=== PATIENT | female | born 1935 | race Caucasian/White ===

== ENCOUNTER 2016-07-19 02:26 | Emergency (ER) | payer MEDICARE ==
[~2016-07-19 02:26] MED LIST: ASPI81TA85 PO; BUSP10TA PO; CIPR-303 PO; FAMO20TA PO; FLAG500T PO; LEVO50TA5 PO; LISI10TA2 PO; NASA0.057; OCEA0.654; PEPCCHW3 PO; SING10TA32 PO; TYLE325T5 PO; VITA100037 PO; ZOCO40TA PO; ZYRT1TAB PO
[2016-07-19] MEDS ORDERED: FAMOTIDINE INJ 20MG/2ML VIAL (S0028) As Ordered ONE (03:32)
[2016-07-19] MEDS ORDERED: diphenhydrAMINE INJ 50MG/ML VIAL (J1200) As Ordered ONE (03:32)
[2016-07-19] MEDS ORDERED: methylPREDNISolone INJ 125 MG/2 ML VIAL (J2930) As Ordered ONE (03:32)
[2016-07-19 03:41] LABS: BASO % 0.2 % (0.0-1.0); EOS # 0.4 K/mm3 (0.0-0.50); EOS % 3.8 % (0.0-3.0); LARGE UNSTAINED CELL # 0.2 K/mm3 (0.0-0.4); LARGE UNSTAINED CELL % 2.1 % (0.0-4.0); LYMPH # 2.5 K/mm3 (1.5-4.5); LYMPH % 25.5 % (24.0-44.0); MEAN CORPUSCULAR HEMOGLOBIN 30.6 pg (27.0-33.0); MEAN CORPUSCULAR HGB CONC 33.2 g/dl (32.0-36.5); MEAN CORPUSCULAR VOLUME 92.1 fl (80.0-96.0); MONO # 0.7 K/mm3 (0.0-0.8); MONO % 7.2 % (0.0-5.0); NEUTROPHILS % 61.3 % (36.0-66.0); PLATELET COUNT, AUTOMATED 290 k/mm3 (150-450); RED CELL DISTRIBUTION WIDTH 13.7 % (11.5-14.5); WHITE BLOOD COUNT 9.8 K/mm3 (4.0-10.0)
[2016-07-19 04:00] LABS: CALCIUM LEVEL 9.2 MG/DL (8.8-10.2); CREATININE FOR GFR 1.16 MG/DL (0.55-1.02); GLOMERULAR FILTRATION RATE 47.9 (>32); POTASSIUM SERUM 3.8 MEQ/L (3.5-5.1)
--- NOTE | 2016-07-19 06:18 | EDDOCDS ---
Nurse's Notes [facility] Name: Ness Signor Age: 80 yrs Sex: Female : 1935 Arrival Date: 07/19/2016 Time: 02:26 Bed 9 Private MD: Diagnosis: Other allergy status, other than to drugs and biological substances-unknown Presentation: 07/19 02:59 Presenting complaint: Patient states: Lower lip swelling. Started at 2300 and has kmg1 progressively got worse. Denies any new foods or fluids. Has not used anything new. Onset: The symptoms/episode began/occurred suddenly. The patient has a history of a previous allergic reaction. The previous reaction involved swelling. upper and lower lips accompanied by hives. Anaphylaxis evaluation, the patient reports or I have noted the following symptoms which indicate a significant risk of anaphylaxis: angioedema. Suicide/Homicide risk assessment- the patient denies having any suicidal and/or homicidal ideations and does not present with any other emotional, behavioral or mental health complaints. Status: Patient is not a marketing services coordinator or dependent. Transition of care: patient was not received from another setting of care. 02:59 Acuity: VINCENT Level 3 kmg1 02:59 Method Of Arrival: Walkin/Carried/Asstd kmg1 06:16 Adult Sepsis Screening: The patient does not have new or worsening altered mentation. af2 Patient's respiratory rate is less than 22. Systolic blood pressure is greater than 100. Patient has a qSOFA score of 0- Negative Sepsis Screen. Triage Assessment: 03:06 General: Appears in no apparent distress, comfortable, Behavior is appropriate for age, kmg1 cooperative, pleasant. Pain: Denies pain. Respiratory: Airway is patent Respiratory effort is even, unlabored, Respiratory pattern is regular, symmetrical, Reports no respiratory complaints. GI:. Derm: Rash noted that is red, raised, urticaria, on left mid back Swollen area noted on lower lip. Historical: - Allergies: Amoxicillin; Bees; Clindamycin (Hives); Erythromycin; SULFA (SULFONAMIDES); - Home Meds: 1. aspirin 81 mg Oral TbEC 1 tab once daily (Last dose: 07/18/2016) 2. buspirone 10 mg Oral tab 1 tab 2 times per day (Last dose: 07/18/2016 22:30) 3. fiber con Unknown 1 cap (Last dose: 07/18/2016 22:30) 4. lisinopril-hydrochlorothiazide 10-12.5 mg oral tab 1 tab once daily (Last dose: 07/18/2016) 5. simvastatin 40 mg Oral tab 1 tab once daily (Last dose: 07/18/2016 17:00) 6. Pepcid 20 mg Oral tab 1 tab once daily (Last dose: 07/18/2016) 7. Synthroid 50 mcg Oral tab 1 tab once daily (Last dose: 07/18/2016) 8. Singulair 10 mg Oral tab 1 tab once daily (Last dose: 07/18/2016) 9. Zyrtec 10 mg Oral tab 1 tab nightly (Last dose: 07/18/2016 22:00) 10. magnesnium daily (Last dose: 07/18/2016) 11. multivitamin Oral tab 1 tab daily (Last dose: 07/18/2016) 12. Vitamin D3 oral 1 tab daily daily (Last dose: 07/18/2016) 13. saline nasal spray as needed - PMHx: Diverticulitis; Hypertension; Hypercholesterolemia; Hypothyroidism; Seasonal Allergies; GERD; Anxiety; - PSHx: D & C; Hysterectomy; - Social history: Smoking status: Patient states was never smoker of tobacco. No barriers to communication noted, The patient speaks fluent Nepalese, Speaks appropriately for age. - Family history: Not pertinent. - : The pt / caregiver states he / she is not on anticoagulants. Home medication list is obtained from the patient, [employer] import data. - Exposure Risk Screening:: None identified. Screenin:05 Screening information is obtained from the patient. Fall risk: No risks identified. af2 Assistance ADL's: requires no assistance with activities of daily living. Abuse/DV Screen: The patient / caregiver reports he/she is: not in a situation that causes fear, pain or injury. Nutritional screening: No deficits noted. Advance Directives: Currently, there is no health care proxy. home support is adequate. Assessment: 03:30 General: Appears in no apparent distress, comfortable, Behavior is appropriate for age, af2 cooperative. Neurological: Level of Consciousness is awake, alert. EENT: edema to upper and lower lips.. Respiratory: Airway is patent Respiratory effort is even, unlabored, Breath sounds are clear bilaterally. 04:30 General: Appears in no apparent distress, comfortable, Behavior is appropriate for age, af2 cooperative, edema to lips decreased.. 06:06 General: pt tolerated po fluid challenge.. Neurological: Level of Consciousness is af2 awake, alert. Respiratory: Airway is patent Respiratory effort is even, unlabored. Derm: Skin is normal. Vital Signs: 03:06 BP 135 / 69; Pulse 76; Resp 18; Temp 97.3(O); Pulse Ox 95% on R/A; Weight 79.38 kg (R); kmg1 Height 5 ft. 3 in. (160.02 cm) (R); Pain 0/10; 03:29 BP 137 / 63 (auto/); af2 03:33 Pulse 76 MON; Pulse Ox 98% ; af2 03:42 BP 141 / 69 (auto/); af2 03:42 Pulse 86 MON; Pulse Ox 98% ; af2 03:59 BP 150 / 65 (auto/); af2 03:59 Pulse 72 MON; Pulse Ox 99% ; af2 04:29 BP 149 / 69 (auto/); af2 04:30 Pulse 68 MON; Pulse Ox 96% ; af2 04:51 BP 135 / 65 (auto/); af2 04:51 Pulse 82 MON; Pulse Ox 95% ; af2 04:59 BP 144 / 62 (auto/); af2 05:00 Pulse 80 MON; Pulse Ox 96% ; af2 05:29 BP 138 / 63 (auto/); af2 05:30 Pulse 74 MON; Pulse Ox 96% ; af2 05:59 BP 139 / 71 (auto/); af2 06:00 Pulse 68 MON; Resp 18 S; Temp 97.0(TE); Pulse Ox 96% on R/A; af2 03:06 Body Mass Index 31.00 (79.38 kg, 160.02 cm) [facility] Vitals: 03:06 Log In Time: July 19, 2016 at 02:27. [facility] ED Course: 02:27 Patient visited by Zeny Presley Reg. hs2 02:27 Patient moved to Waiting hs2 03:02 Triage Initiated [facility] 03:12 Pastora Song,RN is Primary Nurse. kmg1 03:12 Patient moved to 9 [facility] 03:19 Rian Lackey DO is Attending Physician. [facility] 03:19 Patient visited by Rian Lackey DO. mm11 03:27 Patient visited by Rian Lackey DO. mm11 04:05 Patient visited by Pastora Song RN. af2 04:50 Patient visited by Rian Lackey DO. mm11 05:30 Patient visited by Rian Lackey DO. mm11 05:45 Douglas Thomas is Referral Physician. mm11 06:03 [facility] Payment Agreement was scanned into [employer] and attached to record. hs2 06:05 The patient / caregiver is instructed regarding the plan of care and ED course. Patient af2 has correct armband on for positive identification. Placed in gown. 06:05 Inserted saline lock: 20 gauge in left antecubital area and blood collected. The af2 patient tolerated the procedure well. No procedures done that require assistance. 06:07 Patient visited by Pastora Song RN. af2 06:16 Discontinued IV lock intact, bleeding controlled, pressure dressing applied, No af2 redness/swelling at site. Administered Medications: 03:45 Drug: Famotidine 10 mg [famotidine 10 mg/mL intravenous solution] Route: IVPB; Infused kas2 Over: 30 mins; Site: left antecubital; 03:45 Drug: Solu-MEDROL 125 mg [Solu-Medrol 500 mg intravenous solution (125 mg)] Route: IVP; kas2 Site: left antecubital; 03:45 Drug: diphenhydrAMINE 25 mg [diphenhydramine 50 mg/mL injection solution (0.5 mL)] kas2 Route: IVP; Site: left antecubital; Order Results: Lab Order: CBC with Diff; SPEC'M 07/19/16 03:33 Test: WHITE BLOOD COUNT; Value: 9.8; Range: 4.0-10.0; Units: K/mm3; Status: F Test: RED BLOOD COUNT; Value: 4.12; Range: 4.00-5.40; Units: M/mm3; Status: F Test: HEMOGLOBIN; Value: 12.6; Range: 12.0-16.0; Units: g/dl; Status: F Test: HEMATOCRIT; Value: 37.9; Range: 36.0-47.0; Units: %; Status: F Test: MEAN CORPUSCULAR VOLUME; Value: 92.1; Range: 80.0-96.0; Units: fl; Status: F Test: MEAN CORPUSCULAR HEMOGLOBIN; Value: 30.6; Range: 27.0-33.0; Units: pg; Status: F Test: MEAN CORPUSCULAR HGB CONC; Value: 33.2; Range: 32.0-36.5; Units: g/dl; Status: F Test: RED CELL DISTRIBUTION WIDTH; Value: 13.7; Range: 11.5-14.5; Units: %; Status: F Test: PLATELET COUNT, AUTOMATED; Value: 290; Range: 150-450; Units: k/mm3; Status: F Test: NEUTROPHILS %; Value: 61.3; Range: 36.0-66.0; Units: %; Status: F Test: LYMPH %; Value: 25.5; Range: 24.0-44.0; Units: %; Status: F Test: MONO %; Value: 7.2; Range: 0.0-5.0; Abnormal: Above high normal; Units: %; Status: F Test: EOS %; Value: 3.8; Range: 0.0-3.0; Abnormal: Above high normal; Units: %; Status: F Test: BASO %; Value: 0.2; Range: 0.0-1.0; Units: %; Status: F Test: LARGE UNSTAINED CELL %; Value: 2.1; Range: 0.0-4.0; Units: %; Status: F Test: NEUTROPHILS #; Value: 6.0; Range: 1.8-7.7; Units: K/mm3; Status: F Test: LYMPH #; Value: 2.5; Range: 1.5-4.5; Units: K/mm3; Status: F Test: MONO #; Value: 0.7; Range: 0.0-0.8; Units: K/mm3; Status: F Test: EOS #; Value: 0.4; Range: 0.0-0.50; Units: K/mm3; Status: F Test: BASO #; Value: 0.0; Range: 0.0-0.2; Units: K/mm3; Status: F Test: LARGE UNSTAINED CELL #; Value: 0.2; Range: 0.0-0.4; Units: K/mm3; Status: F Lab Order: ROSAURA SARMIENTO 07/19/16 03:33 Test: GLUCOSE, FASTING; Value: 91; Range: 83-110; Units: MG/DL; Status: F Test: BLOOD UREA NITROGEN; Value: 21; Range: 7-18; Abnormal: Above high normal; Units: MG/DL; Status: F Test: CREATININE FOR GFR; Value: 1.16; Range: 0.55-1.02; Abnormal: Above high normal; Units: MG/DL; Status: F Test: GLOMERULAR FILTRATION RATE; Value: 47.9; Range: >32; Status: F Test: SODIUM LEVEL; Value: 147; Range: 136-145; Abnormal: Above high normal; Units: MEQ/L; Status: F Test: POTASSIUM SERUM; Value: 3.8; Range: 3.5-5.1; Units: MEQ/L; Status: F Test: CHLORIDE LEVEL; Value: 109; Range: 98-107; Abnormal: Above high normal; Units: MEQ/L; Status: F Test: CARBON DIOXIDE LEVEL; Value: 30; Range: 21-32; Units: MEQ/L; Status: F Test: ANION GAP; Value: 8; Range: 8-16; Units: MEQ/L; Status: F Test: CALCIUM LEVEL; Value: 9.2; Range: 8.8-10.2; Units: MG/DL; Status: F Test Note: ; Units are mL/min/1.73 m2 Chronic Kidney Disease Staging per NKF: Stage I & II GFR >=60 Normal to Mildly Decreased Stage III GFR 30-59 Moderately Decreased Stage IV GFR 15-29 Severely Decreased Stage V GFR <15 Very Little GFR Left ESRD GFR <15 on COOK BARBECUE Outcome: 05:45 Discharge ordered by Provider. mm11 06:16 Discharge Assessment: Patient awake, alert and oriented x 3. No cognitive and/or af2 functional deficits noted. Patient verbalized understanding of disposition instructions. patient administered narcotics - no. The following High Risk Discharge criteria are identified: None. Discharged to home ambulatory. Condition: stable. Discharge instructions given to patient, Instructed on discharge instructions, follow up and referral plans. medication usage, Demonstrated understanding of instructions, medications, Pt was receptive of discharge instructions/ teaching. No special radiology studies were completed. Property :Personal belongings accompany Pt. 06:17 Patient left the ED. af2 Signatures: Francesca Westbrook RN RN kmg1 Rian Lackey, DO mm11 Pastora Song RN RN af2 Zeny Presley, Reg Reg hs2 Denise Lindsay RN RN kas2 Corrections: (The following items were deleted from the chart) 03:11 03:06 Derm: Swollen area noted on lower lip g1 kmg1 06:08 06:00 Pulse 68bpm; MonitorResp 18bpm; Spontaneous; Pulse Ox 96% RA; af2 af2 MTDD
--- NOTE | 2016-07-19 06:18 | EDDOCDS ---
[facility] Name: Ness Signor Age: 80 yrs Sex: Female : 1935 Arrival Date: 07/19/2016 Time: 02:26 Bed 9 Private MD: Disposition: 07/19/16 05:45 Discharged to Home/Self Care. Impression: Other allergy status, other than to drugs and biological substances - unknown. - Condition is Stable. - Discharge Instructions: Allergies, Angioedema, Angioedema, [id number]. - Prescriptions for Prednisone 20 mg Oral Tablet - take 2 tablet by ORAL route once daily for 5 days; 10 tablet. - Medication Reconciliation, Local Pharmacy Hours form. - Follow up: Douglas Thomas; When: Call to arrange an appointment; Reason: Further diagnostic work-up, To establish care. - Problem is an acute exacerbation. - Symptoms have improved. Historical: - Allergies: Amoxicillin; Bees; Clindamycin (Hives); Erythromycin; SULFA (SULFONAMIDES); - Home Meds: 1. aspirin 81 mg Oral TbEC 1 tab once daily (Last dose: 07/18/2016) 2. buspirone 10 mg Oral tab 1 tab 2 times per day (Last dose: 07/18/2016 22:30) 3. fiber con Unknown 1 cap (Last dose: 07/18/2016 22:30) 4. lisinopril-hydrochlorothiazide 10-12.5 mg oral tab 1 tab once daily (Last dose: 07/18/2016) 5. simvastatin 40 mg Oral tab 1 tab once daily (Last dose: 07/18/2016 17:00) 6. Pepcid 20 mg Oral tab 1 tab once daily (Last dose: 07/18/2016) 7. Synthroid 50 mcg Oral tab 1 tab once daily (Last dose: 07/18/2016) 8. Singulair 10 mg Oral tab 1 tab once daily (Last dose: 07/18/2016) 9. Zyrtec 10 mg Oral tab 1 tab nightly (Last dose: 07/18/2016 22:00) 10. magnesnium daily (Last dose: 07/18/2016) 11. multivitamin Oral tab 1 tab daily (Last dose: 07/18/2016) 12. Vitamin D3 oral 1 tab daily daily (Last dose: 07/18/2016) 13. saline nasal spray as needed - PMHx: Diverticulitis; Hypertension; Hypercholesterolemia; Hypothyroidism; Seasonal Allergies; GERD; Anxiety; - PSHx: D & C; Hysterectomy; - Social history: Smoking status: Patient states was never smoker of tobacco. No barriers to communication noted, The patient speaks fluent Malay, Speaks appropriately for age. - Family history: Not pertinent. - : The pt / caregiver states he / she is not on anticoagulants. Home medication list is obtained from the patient, [employer] import data. - Exposure Risk Screening:: None identified. Vital Signs: 07/19 03:06 BP 135 / 69; Pulse 76; Resp 18; Temp 97.3(O); Pulse Ox 95% on R/A; Weight 79.38 kg / kmg1 175 lbs (R); Height 5 ft. 3 in. (160.02 cm) (R); Pain 0/10; 03:29 BP 137 / 63 (auto/); af2 03:33 Pulse 76 MON; Pulse Ox 98% ; af2 03:42 BP 141 / 69 (auto/); af2 03:42 Pulse 86 MON; Pulse Ox 98% ; af2 03:59 BP 150 / 65 (auto/); af2 03:59 Pulse 72 MON; Pulse Ox 99% ; af2 04:29 BP 149 / 69 (auto/); af2 04:30 Pulse 68 MON; Pulse Ox 96% ; af2 04:51 BP 135 / 65 (auto/); af2 04:51 Pulse 82 MON; Pulse Ox 95% ; af2 04:59 BP 144 / 62 (auto/); af2 05:00 Pulse 80 MON; Pulse Ox 96% ; af2 05:29 BP 138 / 63 (auto/); af2 05:30 Pulse 74 MON; Pulse Ox 96% ; af2 05:59 BP 139 / 71 (auto/); af2 06:00 Pulse 68 MON; Resp 18 S; Temp 97.0(TE); Pulse Ox 96% on R/A; af2 03:06 Body Mass Index 31.00 (79.38 kg, 160.02 cm) kmg1 MDM: 03:28 Famotidine 10 mg IVPB once over 30 mins; dilute in 50mL of NS ordered. mm11 03:28 Solu-MEDROL 125 mg IVP once ordered. mm11 03:28 diphenhydrAMINE 25 mg IVP once ordered. mm11 03:29 CBC with Diff Ordered. EDMS 03:29 BMP Ordered. EDMS 03:30 Solu-MEDROL 125 mg IVP once ordered. kas2 03:30 diphenhydrAMINE 25 mg IVP once ordered. kas2 04:06 CBC with Diff Reviewed. mm11 04:06 BMP Reviewed. mm11 05:58 Financial registration complete. hs2 06:03 PENDING SALE TO [facility] Payment Agreement was scanned into [employer] and attached to record. hs2 Administered Medications: 03:45 Drug: Famotidine 10 mg [famotidine 10 mg/mL intravenous solution] Route: IVPB; Infused kas2 Over: 30 mins; Site: left antecubital; 03:45 Drug: Solu-MEDROL 125 mg [Solu-Medrol 500 mg intravenous solution (125 mg)] Route: IVP; kas2 Site: left antecubital; 03:45 Drug: diphenhydrAMINE 25 mg [diphenhydramine 50 mg/mL injection solution (0.5 mL)] kas2 Route: IVP; Site: left antecubital; Signatures: Dispatcher [employer] EDMS Francesca Westbrook, ABDIRAHMAN RN kmg1 Rian Lackey, DO mm11 Pastora Song RN RN af2 Zeny Presley, Reg Reg hs2 Denise Lindsay RN RN kas2 The chart was reviewed and I authenticate all verbal orders and agree with the evaluation and treatment provided.Attachments: 06:03 PENDING SALE TO [facility] Payment Agreement hs2 MTDD
--- NOTE | 2016-07-21 07:17 | EDDOCDS ---
Physician Documentation [facility] Name: Ness Signor Age: 80 yrs Sex: Female : 1935 Arrival Date: 07/19/2016 Time: 02:26 Bed 9 Private MD: Disposition: 07/19/16 05:45 Discharged to Home/Self Care. Impression: Other allergy status, other than to drugs and biological substances - unknown. - Condition is Stable. - Discharge Instructions: Allergies, Angioedema, Angioedema, [id number]. - Prescriptions for Prednisone 20 mg Oral Tablet - take 2 tablet by ORAL route once daily for 5 days; 10 tablet. - Medication Reconciliation, Local Pharmacy Hours form. - Follow up: Douglas Thomas; When: Call to arrange an appointment; Reason: Further diagnostic work-up, To establish care. - Problem is an acute exacerbation. - Symptoms have improved. Historical: - Allergies: Amoxicillin; Bees; Clindamycin (Hives); Erythromycin; SULFA (SULFONAMIDES); - Home Meds: 1. aspirin 81 mg Oral TbEC 1 tab once daily (Last dose: 07/18/2016) 2. buspirone 10 mg Oral tab 1 tab 2 times per day (Last dose: 07/18/2016 22:30) 3. fiber con Unknown 1 cap (Last dose: 07/18/2016 22:30) 4. lisinopril-hydrochlorothiazide 10-12.5 mg oral tab 1 tab once daily (Last dose: 07/18/2016) 5. simvastatin 40 mg Oral tab 1 tab once daily (Last dose: 07/18/2016 17:00) 6. Pepcid 20 mg Oral tab 1 tab once daily (Last dose: 07/18/2016) 7. Synthroid 50 mcg Oral tab 1 tab once daily (Last dose: 07/18/2016) 8. Singulair 10 mg Oral tab 1 tab once daily (Last dose: 07/18/2016) 9. Zyrtec 10 mg Oral tab 1 tab nightly (Last dose: 07/18/2016 22:00) 10. magnesnium daily (Last dose: 07/18/2016) 11. multivitamin Oral tab 1 tab daily (Last dose: 07/18/2016) 12. Vitamin D3 oral 1 tab daily daily (Last dose: 07/18/2016) 13. saline nasal spray as needed - PMHx: Diverticulitis; Hypertension; Hypercholesterolemia; Hypothyroidism; Seasonal Allergies; GERD; Anxiety; - PSHx: D & C; Hysterectomy; - Social history: Smoking status: Patient states was never smoker of tobacco. No barriers to communication noted, The patient speaks fluent Mongolian, Speaks appropriately for age. - Family history: Not pertinent. - : The pt / caregiver states he / she is not on anticoagulants. Home medication list is obtained from the patient, [email or web address] import data. - Exposure Risk Screening:: None identified. Vital Signs: 07/19 03:06 BP 135 / 69; Pulse 76; Resp 18; Temp 97.3(O); Pulse Ox 95% on R/A; Weight 79.38 kg / kmg1 175 lbs (R); Height 5 ft. 3 in. (160.02 cm) (R); Pain 0/10; 03:29 BP 137 / 63 (auto/); af2 03:33 Pulse 76 MON; Pulse Ox 98% ; af2 03:42 BP 141 / 69 (auto/); af2 03:42 Pulse 86 MON; Pulse Ox 98% ; af2 03:59 BP 150 / 65 (auto/); af2 03:59 Pulse 72 MON; Pulse Ox 99% ; af2 04:29 BP 149 / 69 (auto/); af2 04:30 Pulse 68 MON; Pulse Ox 96% ; af2 04:51 BP 135 / 65 (auto/); af2 04:51 Pulse 82 MON; Pulse Ox 95% ; af2 04:59 BP 144 / 62 (auto/); af2 05:00 Pulse 80 MON; Pulse Ox 96% ; af2 05:29 BP 138 / 63 (auto/); af2 05:30 Pulse 74 MON; Pulse Ox 96% ; af2 05:59 BP 139 / 71 (auto/); af2 06:00 Pulse 68 MON; Resp 18 S; Temp 97.0(TE); Pulse Ox 96% on R/A; af2 03:06 Body Mass Index 31.00 (79.38 kg, 160.02 cm) kmg1 MDM: 03:28 Famotidine 10 mg IVPB once over 30 mins; dilute in 50mL of NS ordered. mm11 03:28 Solu-MEDROL 125 mg IVP once ordered. mm11 03:28 diphenhydrAMINE 25 mg IVP once ordered. mm11 03:29 CBC with Diff Ordered. EDMS 03:29 BMP Ordered. EDMS 03:30 Solu-MEDROL 125 mg IVP once ordered. kas2 03:30 diphenhydrAMINE 25 mg IVP once ordered. kas2 04:06 CBC with Diff Reviewed. mm11 04:06 BMP Reviewed. mm11 05:58 Financial registration complete. hs2 06:03 ON LICENSE OF [facility] Payment Agreement was scanned into [employer] and attached to record. hs2 22:01 T-Sheet-- Draft Copy was scanned into [employer] and attached to record. klr Administered Medications: 03:45 Drug: Famotidine 10 mg [famotidine 10 mg/mL intravenous solution] Route: IVPB; Infused kas2 Over: 30 mins; Site: left antecubital; 03:45 Drug: Solu-MEDROL 125 mg [Solu-Medrol 500 mg intravenous solution (125 mg)] Route: IVP; kas2 Site: left antecubital; 03:45 Drug: diphenhydrAMINE 25 mg [diphenhydramine 50 mg/mL injection solution (0.5 mL)] kas2 Route: IVP; Site: left antecubital; Signatures: Dispatcher [employer] EDFrancesca Casillas, ABDIRAHMAN RN kmg1 Rian Lackey, DO mm11 Pastora Song RN RN af2 Zeny Presley, Reg Reg hs2 Denise Lindsay RN RN kas2 Sariah Badillo klr The chart was reviewed and I authenticate all verbal orders and agree with the evaluation and treatment provided.Attachments: 06:03 ON LICENSE OF [facility] Payment Agreement hs2 22:01 T-Sheet-- Draft Copy klr Chart Complete MTDD
--- NOTE | 2016-07-21 07:17 | EDDOCDS ---
Physician Documentation [facility] Name: Ness Signor Age: 80 yrs Sex: Female : 1935 Arrival Date: 07/19/2016 Time: 02:26 Bed 9 Private MD: Disposition: 07/19/16 05:45 Discharged to Home/Self Care. Impression: Other allergy status, other than to drugs and biological substances - unknown. - Condition is Stable. - Discharge Instructions: Allergies, Angioedema, Angioedema, [id number]. - Prescriptions for Prednisone 20 mg Oral Tablet - take 2 tablet by ORAL route once daily for 5 days; 10 tablet. - Medication Reconciliation, Local Pharmacy Hours form. - Follow up: Douglas Thomas; When: Call to arrange an appointment; Reason: Further diagnostic work-up, To establish care. - Problem is an acute exacerbation. - Symptoms have improved. Historical: - Allergies: Amoxicillin; Bees; Clindamycin (Hives); Erythromycin; SULFA (SULFONAMIDES); - Home Meds: 1. aspirin 81 mg Oral TbEC 1 tab once daily (Last dose: 07/18/2016) 2. buspirone 10 mg Oral tab 1 tab 2 times per day (Last dose: 07/18/2016 22:30) 3. fiber con Unknown 1 cap (Last dose: 07/18/2016 22:30) 4. lisinopril-hydrochlorothiazide 10-12.5 mg oral tab 1 tab once daily (Last dose: 07/18/2016) 5. simvastatin 40 mg Oral tab 1 tab once daily (Last dose: 07/18/2016 17:00) 6. Pepcid 20 mg Oral tab 1 tab once daily (Last dose: 07/18/2016) 7. Synthroid 50 mcg Oral tab 1 tab once daily (Last dose: 07/18/2016) 8. Singulair 10 mg Oral tab 1 tab once daily (Last dose: 07/18/2016) 9. Zyrtec 10 mg Oral tab 1 tab nightly (Last dose: 07/18/2016 22:00) 10. magnesnium daily (Last dose: 07/18/2016) 11. multivitamin Oral tab 1 tab daily (Last dose: 07/18/2016) 12. Vitamin D3 oral 1 tab daily daily (Last dose: 07/18/2016) 13. saline nasal spray as needed - PMHx: Diverticulitis; Hypertension; Hypercholesterolemia; Hypothyroidism; Seasonal Allergies; GERD; Anxiety; - PSHx: D & C; Hysterectomy; - Social history: Smoking status: Patient states was never smoker of tobacco. No barriers to communication noted, The patient speaks fluent Malay, Speaks appropriately for age. - Family history: Not pertinent. - : The pt / caregiver states he / she is not on anticoagulants. Home medication list is obtained from the patient, [employer] import data. - Exposure Risk Screening:: None identified. Vital Signs: 07/19 03:06 BP 135 / 69; Pulse 76; Resp 18; Temp 97.3(O); Pulse Ox 95% on R/A; Weight 79.38 kg / kmg1 175 lbs (R); Height 5 ft. 3 in. (160.02 cm) (R); Pain 0/10; 03:29 BP 137 / 63 (auto/); af2 03:33 Pulse 76 MON; Pulse Ox 98% ; af2 03:42 BP 141 / 69 (auto/); af2 03:42 Pulse 86 MON; Pulse Ox 98% ; af2 03:59 BP 150 / 65 (auto/); af2 03:59 Pulse 72 MON; Pulse Ox 99% ; af2 04:29 BP 149 / 69 (auto/); af2 04:30 Pulse 68 MON; Pulse Ox 96% ; af2 04:51 BP 135 / 65 (auto/); af2 04:51 Pulse 82 MON; Pulse Ox 95% ; af2 04:59 BP 144 / 62 (auto/); af2 05:00 Pulse 80 MON; Pulse Ox 96% ; af2 05:29 BP 138 / 63 (auto/); af2 05:30 Pulse 74 MON; Pulse Ox 96% ; af2 05:59 BP 139 / 71 (auto/); af2 06:00 Pulse 68 MON; Resp 18 S; Temp 97.0(TE); Pulse Ox 96% on R/A; af2 03:06 Body Mass Index 31.00 (79.38 kg, 160.02 cm) kmg1 MDM: 03:28 Famotidine 10 mg IVPB once over 30 mins; dilute in 50mL of NS ordered. mm11 03:28 Solu-MEDROL 125 mg IVP once ordered. mm11 03:28 diphenhydrAMINE 25 mg IVP once ordered. mm11 03:29 CBC with Diff Ordered. EDMS 03:29 BMP Ordered. EDMS 03:30 Solu-MEDROL 125 mg IVP once ordered. kas2 03:30 diphenhydrAMINE 25 mg IVP once ordered. kas2 04:06 CBC with Diff Reviewed. mm11 04:06 BMP Reviewed. mm11 05:58 Financial registration complete. hs2 06:03 [facility] Payment Agreement was scanned into [employer] and attached to record. hs2 22:01 T-Sheet-- Draft Copy was scanned into [employer] and attached to record. klr Administered Medications: 03:45 Drug: Famotidine 10 mg [famotidine 10 mg/mL intravenous solution] Route: IVPB; Infused kas2 Over: 30 mins; Site: left antecubital; 03:45 Drug: Solu-MEDROL 125 mg [Solu-Medrol 500 mg intravenous solution (125 mg)] Route: IVP; kas2 Site: left antecubital; 03:45 Drug: diphenhydrAMINE 25 mg [diphenhydramine 50 mg/mL injection solution (0.5 mL)] kas2 Route: IVP; Site: left antecubital; Signatures: Dispatcher [employer] EDFrancesca Casillas, ABDIRAHMAN RN kmg1 Rian Lackey, DO mm11 Pastora Song RN RN af2 Zeny Presley, Reg Reg hs2 Denise Lindsay RN RN kas2 Sariah Badillo klr The chart was reviewed and I authenticate all verbal orders and agree with the evaluation and treatment provided.Attachments: 06:03 [facility] Payment Agreement hs2 22:01 T-Sheet-- Draft Copy klr Chart Complete MTDD
--- NOTE | 2016-07-21 07:18 | EDDOCDS ---
Nurse's Notes [facility] Name: Ness Signor Age: 80 yrs Sex: Female : 1935 Arrival Date: 07/19/2016 Time: 02:26 Bed 9 Private MD: Diagnosis: Other allergy status, other than to drugs and biological substances-unknown Presentation: 07/19 02:59 Presenting complaint: Patient states: Lower lip swelling. Started at 2300 and has kmg1 progressively got worse. Denies any new foods or fluids. Has not used anything new. Onset: The symptoms/episode began/occurred suddenly. The patient has a history of a previous allergic reaction. The previous reaction involved swelling. upper and lower lips accompanied by hives. Anaphylaxis evaluation, the patient reports or I have noted the following symptoms which indicate a significant risk of anaphylaxis: angioedema. Suicide/Homicide risk assessment- the patient denies having any suicidal and/or homicidal ideations and does not present with any other emotional, behavioral or mental health complaints. 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 Transition of care: patient was not received from another setting of care. 02:59 Acuity: VINCENT Level 3 kmg1 02:59 Method Of Arrival: Walkin/Carried/Asstd kmg1 06:16 Adult Sepsis Screening: The patient does not have new or worsening altered mentation. af2 Patient's respiratory rate is less than 22. Systolic blood pressure is greater than 100. Patient has a qSOFA score of 0- Negative Sepsis Screen. Triage Assessment: 03:06 General: Appears in no apparent distress, comfortable, Behavior is appropriate for age, kmg1 cooperative, pleasant. Pain: Denies pain. Respiratory: Airway is patent Respiratory effort is even, unlabored, Respiratory pattern is regular, symmetrical, Reports no respiratory complaints. GI:. Derm: Rash noted that is red, raised, urticaria, on left mid back Swollen area noted on lower lip. Historical: - Allergies: Amoxicillin; Bees; Clindamycin (Hives); Erythromycin; SULFA (SULFONAMIDES); - Home Meds: 1. aspirin 81 mg Oral TbEC 1 tab once daily (Last dose: 07/18/2016) 2. buspirone 10 mg Oral tab 1 tab 2 times per day (Last dose: 07/18/2016 22:30) 3. fiber con Unknown 1 cap (Last dose: 07/18/2016 22:30) 4. lisinopril-hydrochlorothiazide 10-12.5 mg oral tab 1 tab once daily (Last dose: 07/18/2016) 5. simvastatin 40 mg Oral tab 1 tab once daily (Last dose: 07/18/2016 17:00) 6. Pepcid 20 mg Oral tab 1 tab once daily (Last dose: 07/18/2016) 7. Synthroid 50 mcg Oral tab 1 tab once daily (Last dose: 07/18/2016) 8. Singulair 10 mg Oral tab 1 tab once daily (Last dose: 07/18/2016) 9. Zyrtec 10 mg Oral tab 1 tab nightly (Last dose: 07/18/2016 22:00) 10. magnesnium daily (Last dose: 07/18/2016) 11. multivitamin Oral tab 1 tab daily (Last dose: 07/18/2016) 12. Vitamin D3 oral 1 tab daily daily (Last dose: 07/18/2016) 13. saline nasal spray as needed - PMHx: Diverticulitis; Hypertension; Hypercholesterolemia; Hypothyroidism; Seasonal Allergies; GERD; Anxiety; - PSHx: D & C; Hysterectomy; - Social history: Smoking status: Patient states was never smoker of tobacco. No barriers to communication noted, The patient speaks fluent Eritrean, Speaks appropriately for age. - Family history: Not pertinent. - : The pt / caregiver states he / she is not on anticoagulants. Home medication list is obtained from the patient, [employer] import data. - Exposure Risk Screening:: None identified. Screenin:05 Screening information is obtained from the patient. Fall risk: No risks identified. af2 Assistance ADL's: requires no assistance with activities of daily living. Abuse/DV Screen: The patient / caregiver reports he/she is: not in a situation that causes fear, pain or injury. Nutritional screening: No deficits noted. Advance Directives: Currently, there is no health care proxy. home support is adequate. Assessment: 03:30 General: Appears in no apparent distress, comfortable, Behavior is appropriate for age, af2 cooperative. Neurological: Level of Consciousness is awake, alert. EENT: edema to upper and lower lips.. Respiratory: Airway is patent Respiratory effort is even, unlabored, Breath sounds are clear bilaterally. 04:30 General: Appears in no apparent distress, comfortable, Behavior is appropriate for age, af2 cooperative, edema to lips decreased.. 06:06 General: pt tolerated po fluid challenge.. Neurological: Level of Consciousness is af2 awake, alert. Respiratory: Airway is patent Respiratory effort is even, unlabored. Derm: Skin is normal. Vital Signs: 03:06 BP 135 / 69; Pulse 76; Resp 18; Temp 97.3(O); Pulse Ox 95% on R/A; Weight 79.38 kg (R); kmg1 Height 5 ft. 3 in. (160.02 cm) (R); Pain 0/10; 03:29 BP 137 / 63 (auto/); af2 03:33 Pulse 76 MON; Pulse Ox 98% ; af2 03:42 BP 141 / 69 (auto/); af2 03:42 Pulse 86 MON; Pulse Ox 98% ; af2 03:59 BP 150 / 65 (auto/); af2 03:59 Pulse 72 MON; Pulse Ox 99% ; af2 04:29 BP 149 / 69 (auto/); af2 04:30 Pulse 68 MON; Pulse Ox 96% ; af2 04:51 BP 135 / 65 (auto/); af2 04:51 Pulse 82 MON; Pulse Ox 95% ; af2 04:59 BP 144 / 62 (auto/); af2 05:00 Pulse 80 MON; Pulse Ox 96% ; af2 05:29 BP 138 / 63 (auto/); af2 05:30 Pulse 74 MON; Pulse Ox 96% ; af2 05:59 BP 139 / 71 (auto/); af2 06:00 Pulse 68 MON; Resp 18 S; Temp 97.0(TE); Pulse Ox 96% on R/A; af2 03:06 Body Mass Index 31.00 (79.38 kg, 160.02 cm) [facility] Vitals: 03:06 Log In Time: July 19, 2016 at 02:27. [facility] ED Course: 02:27 Patient visited by Zeny Presley Reg. hs2 02:27 Patient moved to Waiting hs2 03:02 Triage Initiated [facility] 03:12 Pastora Song,RN is Primary Nurse. kmg1 03:12 Patient moved to 9 [facility] 03:19 Rian Lackey DO is Attending Physician. [facility] 03:19 Patient visited by Rian Lackey DO. mm11 03:27 Patient visited by Rian Lackey DO. mm11 04:05 Patient visited by Pastora Song RN. af2 04:50 Patient visited by Rian Lackey DO. mm11 05:30 Patient visited by Rian Lackey DO. mm11 05:45 Douglas Thomas is Referral Physician. mm11 06:03 [facility] Payment Agreement was scanned into [email or web address] and attached to record. hs2 06:05 The patient / caregiver is instructed regarding the plan of care and ED course. Patient af2 has correct armband on for positive identification. Placed in gown. 06:05 Inserted saline lock: 20 gauge in left antecubital area and blood collected. The af2 patient tolerated the procedure well. No procedures done that require assistance. 06:07 Patient visited by Pastora Song RN. af2 06:16 Discontinued IV lock intact, bleeding controlled, pressure dressing applied, No af2 redness/swelling at site. 22:01 T-Sheet-- Draft Copy was scanned into [employer] and attached to record. klr Administered Medications: 03:45 Drug: Famotidine 10 mg [famotidine 10 mg/mL intravenous solution] Route: IVPB; Infused kas2 Over: 30 mins; Site: left antecubital; 03:45 Drug: Solu-MEDROL 125 mg [Solu-Medrol 500 mg intravenous solution (125 mg)] Route: IVP; kas2 Site: left antecubital; 03:45 Drug: diphenhydrAMINE 25 mg [diphenhydramine 50 mg/mL injection solution (0.5 mL)] kas2 Route: IVP; Site: left antecubital; Order Results: Lab Order: CBC with Diff; SPEC'M 07/19/16 03:33 Test: WHITE BLOOD COUNT; Value: 9.8; Range: 4.0-10.0; Units: K/mm3; Status: F Test: RED BLOOD COUNT; Value: 4.12; Range: 4.00-5.40; Units: M/mm3; Status: F Test: HEMOGLOBIN; Value: 12.6; Range: 12.0-16.0; Units: g/dl; Status: F Test: HEMATOCRIT; Value: 37.9; Range: 36.0-47.0; Units: %; Status: F Test: MEAN CORPUSCULAR VOLUME; Value: 92.1; Range: 80.0-96.0; Units: fl; Status: F Test: MEAN CORPUSCULAR HEMOGLOBIN; Value: 30.6; Range: 27.0-33.0; Units: pg; Status: F Test: MEAN CORPUSCULAR HGB CONC; Value: 33.2; Range: 32.0-36.5; Units: g/dl; Status: F Test: RED CELL DISTRIBUTION WIDTH; Value: 13.7; Range: 11.5-14.5; Units: %; Status: F Test: PLATELET COUNT, AUTOMATED; Value: 290; Range: 150-450; Units: k/mm3; Status: F Test: NEUTROPHILS %; Value: 61.3; Range: 36.0-66.0; Units: %; Status: F Test: LYMPH %; Value: 25.5; Range: 24.0-44.0; Units: %; Status: F Test: MONO %; Value: 7.2; Range: 0.0-5.0; Abnormal: Above high normal; Units: %; Status: F Test: EOS %; Value: 3.8; Range: 0.0-3.0; Abnormal: Above high normal; Units: %; Status: F Test: BASO %; Value: 0.2; Range: 0.0-1.0; Units: %; Status: F Test: LARGE UNSTAINED CELL %; Value: 2.1; Range: 0.0-4.0; Units: %; Status: F Test: NEUTROPHILS #; Value: 6.0; Range: 1.8-7.7; Units: K/mm3; Status: F Test: LYMPH #; Value: 2.5; Range: 1.5-4.5; Units: K/mm3; Status: F Test: MONO #; Value: 0.7; Range: 0.0-0.8; Units: K/mm3; Status: F Test: EOS #; Value: 0.4; Range: 0.0-0.50; Units: K/mm3; Status: F Test: BASO #; Value: 0.0; Range: 0.0-0.2; Units: K/mm3; Status: F Test: LARGE UNSTAINED CELL #; Value: 0.2; Range: 0.0-0.4; Units: K/mm3; Status: F Lab Order: ROSAURA SARMIENTO 07/19/16 03:33 Test: GLUCOSE, FASTING; Value: 91; Range: 83-110; Units: MG/DL; Status: F Test: BLOOD UREA NITROGEN; Value: 21; Range: 7-18; Abnormal: Above high normal; Units: MG/DL; Status: F Test: CREATININE FOR GFR; Value: 1.16; Range: 0.55-1.02; Abnormal: Above high normal; Units: MG/DL; Status: F Test: GLOMERULAR FILTRATION RATE; Value: 47.9; Range: >32; Status: F Test: SODIUM LEVEL; Value: 147; Range: 136-145; Abnormal: Above high normal; Units: MEQ/L; Status: F Test: POTASSIUM SERUM; Value: 3.8; Range: 3.5-5.1; Units: MEQ/L; Status: F Test: CHLORIDE LEVEL; Value: 109; Range: 98-107; Abnormal: Above high normal; Units: MEQ/L; Status: F Test: CARBON DIOXIDE LEVEL; Value: 30; Range: 21-32; Units: MEQ/L; Status: F Test: ANION GAP; Value: 8; Range: 8-16; Units: MEQ/L; Status: F Test: CALCIUM LEVEL; Value: 9.2; Range: 8.8-10.2; Units: MG/DL; Status: F Test Note: ; Units are mL/min/1.73 m2 Chronic Kidney Disease Staging per NKF: Stage I & II GFR >=60 Normal to Mildly Decreased Stage III GFR 30-59 Moderately Decreased Stage IV GFR 15-29 Severely Decreased Stage V GFR <15 Very Little GFR Left ESRD GFR <15 on CARDIOTHORACIC ICU RN Outcome: 05:45 Discharge ordered by Provider. mm11 06:16 Discharge Assessment: Patient awake, alert and oriented x 3. No cognitive and/or af2 functional deficits noted. Patient verbalized understanding of disposition instructions. patient administered narcotics - no. The following High Risk Discharge criteria are identified: None. Discharged to home ambulatory. Condition: stable. Discharge instructions given to patient, Instructed on discharge instructions, follow up and referral plans. medication usage, Demonstrated understanding of instructions, medications, Pt was receptive of discharge instructions/ teaching. No special radiology studies were completed. Property :Personal belongings accompany Pt. 06:17 Patient left the ED. af2 Signatures: Francesca Westbrook RN RN g1 Rian Lackey, DO DO mm11 Pastora Song RN RN af2 Zeny Presley, Reg Reg hs2 Denise Lindsay RN RN kas2 Sariah Badillo Corrections: (The following items were deleted from the chart) 03:11 03:06 Derm: Swollen area noted on lower lip [place] [id number] 06:08 06:00 Pulse 68bpm; MonitorResp 18bpm; Spontaneous; Pulse Ox 96% RA; af2 af2 Chart Complete MTDD
== END 2016-07-19 06:17 | disposition home or self-care (01) ==
LOC: M ED 02:26
DX: T78.3XXA Angioneurotic edema, initial encounter (principal); T78.40XA Allergy, unspecified, initial encounter; R22.0 Localized swelling, mass and lump, head; I10 Essential (primary) hypertension; E78.00 Pure hypercholesterolemia, unspecified; E03.9 Hypothyroidism, unspecified; J30.2 Other seasonal allergic rhinitis; K21.9 Gastro-esophageal reflux disease without esophagitis; F41.9 Anxiety disorder, unspecified; K57.92 Diverticulitis of intestine, part unspecified, without perforation or abscess without bleeding; Z79.899 Other long term (current) drug therapy; Z79.82 Long term (current) use of aspirin; Z88.1 Allergy status to other antibiotic agents; Z88.2 Allergy status to sulfonamides; Z91.030 Bee allergy status
CPT/HCPCS: 36415; 80048; 85025; 96374; 96375; 99284; J1200; J2930

== ENCOUNTER → 2016-07-30 | Outpatient (REF) | payer MEDICARE ==
[2016-07-30 11:50] LABS: MEAN CORPUSCULAR VOLUME 93.7 fl (80.0-96.0); RED CELL DISTRIBUTION WIDTH 14.2 % (11.5-14.5); WHITE BLOOD COUNT 9.6 K/mm3 (4.0-10.0)
[2016-07-30 12:16] LABS: ALBUMIN 3.1 GM/DL (3.2-5.2); ALBUMIN/GLOBULIN RATIO 1.15 (1.00-1.93); BILIRUBIN,TOTAL 0.4 MG/DL (0.2-1.0); CALCIUM LEVEL 9.5 MG/DL (8.8-10.2); CREATININE FOR GFR 0.98 MG/DL (0.55-1.02); POTASSIUM SERUM 4.2 MEQ/L (3.5-5.1); TOTAL PROTEIN 5.8 GM/DL (6.4-8.2); URIC ACID 5.7 MG/DL (2.6-6.0)
== END ==
LOC: M SFHCPLAZ 07:57
PROVIDERS: ATTEND Internal Medicine
DX: K21.9 Gastro-esophageal reflux disease without esophagitis (principal); I10 Essential (primary) hypertension; E03.9 Hypothyroidism, unspecified; M85.80 Other specified disorders of bone density and structure, unspecified site

== ENCOUNTER 2016-08-27 09:04 | Emergency (ER) | payer MEDICARE ==
[~2016-08-27] VITALS: Ht 160 cm; Wt 80.3 kg
[2016-08-27 09:08] VITALS: BP 112/66
[2016-08-27] MEDS ORDERED: MAGN1TAB25 PO (09:15)
[2016-08-27] MEDS ORDERED: CENTTAB PO (09:15)
[2016-08-27] MEDS ORDERED: CORE6.25 PO (09:18)
[2016-08-27] MEDS ORDERED: CORE12.5 PO (09:18)
[2016-08-27] MEDS ORDERED: methylPREDNISolone INJ 125 MG/2 ML VIAL (J2930) IV ONE (10:45)
[2016-08-27] MEDS ORDERED: FAMOTIDINE IV BAG 20 MG in APPROPRIATE DILUENT 1 EA IV ONE (10:45)
[2016-08-27] MEDS ORDERED: diphenhydrAMINE INJ 50MG/ML VIAL (J1200) IV ONE (10:45)
[2016-08-27 11:02] LABS: MEAN CORPUSCULAR HGB CONC 32.5 g/dl (32.0-36.5); MEAN CORPUSCULAR VOLUME 92.5 fl (80.0-96.0); PLATELET COUNT, AUTOMATED 335 k/mm3 (150-450); RED CELL DISTRIBUTION WIDTH 13.9 % (11.5-14.5); WHITE BLOOD COUNT 8.5 K/mm3 (4.0-10.0)
[2016-08-27 11:28] LABS: ALBUMIN 2.7 GM/DL (3.2-5.2); ALBUMIN/GLOBULIN RATIO 0.84 (1.00-1.93); BILIRUBIN,DIRECT 0.2 MG/DL (0.0-0.2); BILIRUBIN,TOTAL 0.6 MG/DL (0.2-1.0); CALCIUM LEVEL 8.4 MG/DL (8.8-10.2); COMPLEMENT C4 31.1 MG/DL (10-40); CREATININE FOR GFR 1.11 MG/DL (0.55-1.02); GLOMERULAR FILTRATION RATE 50.2 (>32); POTASSIUM SERUM 4.3 MEQ/L (3.5-5.1); TOTAL PROTEIN 5.9 GM/DL (6.4-8.2)
[2016-08-27 11:35] LABS: ERYTHROCYTE SEDIMENTATION RATE 49 mm/hr (0-30)
[2016-08-27] MEDS ORDERED: PRED20TA PO (14:12)
[2016-08-27] MEDS ORDERED: BENA25CA4 PO (14:13)
[2016-09-01 00:10] LABS: TRYPTASE 52.8 ug/L (2.2-13.2)
== END 2016-08-27 14:34 | disposition home or self-care (01) ==
LOC: M ED 10:22
DX: R22.0 Localized swelling, mass and lump, head (principal); Z88.2 Allergy status to sulfonamides; Z88.1 Allergy status to other antibiotic agents; Z88.8 Allergy status to other drugs, medicaments and biological substances; Z91.030 Bee allergy status; Z79.899 Other long term (current) drug therapy; Z79.82 Long term (current) use of aspirin
CPT/HCPCS: 36415; 80048; 80076; 83519; 85025; 85280; 85652; 86140; 86160; 86161; 93041; 94760; 96374; 96375; 99284; J1200; J2930

== ENCOUNTER → 2016-09-04 | Outpatient (CLI) | payer MEDICARE ==
[~2016-09-04] MED LIST changes: +BENA25CA4 PO; +CENTTAB PO; +CORE12.5 PO; +CORE6.25 PO; +MAGN1TAB25 PO; +PRED20TA PO
[2016-09-04 14:53] LABS: MEAN CORPUSCULAR HEMOGLOBIN 30.7 pg (27.0-33.0); MEAN CORPUSCULAR HGB CONC 32.6 g/dl (32.0-36.5); RED CELL DISTRIBUTION WIDTH 14.1 % (11.5-14.5); WHITE BLOOD COUNT 17.9 K/mm3 (4.0-10.0)
[2016-09-04 15:34] LABS: THYROID PEROXIDASE ANTIBODY < 28.0 U/ML (<60.0)
== END ==
LOC: M LAB 14:09
PROVIDERS: ATTEND Allergy & Immunology Allergy
DX: L50.1 Idiopathic urticaria (principal)

== ENCOUNTER → 2016-09-22 | Outpatient (REF) | payer MEDICARE ==
[2016-09-22 17:59] LABS: COMPLEMENT C4 30.3 MG/DL (10-40)
[2016-09-22 18:06] LABS: MEAN CORPUSCULAR HEMOGLOBIN 30.9 pg (27.0-33.0); MEAN CORPUSCULAR HGB CONC 32.6 g/dl (32.0-36.5); MEAN CORPUSCULAR VOLUME 94.9 fl (80.0-96.0); RED CELL DISTRIBUTION WIDTH 14.1 % (11.5-14.5); WHITE BLOOD COUNT 6.9 K/mm3 (4.0-10.0)
[2016-09-22 20:50] LABS: EOSINOPHILS 4 % (0-5)
[2016-09-22 20:51] LABS: REASON FOR REVIEW COMPREHENSIVE REVIEW
[2016-09-24 10:16] LABS: H PYLORI SERUM QUANT IgG ABY <0.9 U/mL (0.0-0.8); TOXOPLASMA IgG ABY <3.0 IU/mL (0.0-7.1)
== END ==
LOC: M SFHCPLAZ 14:44
PROVIDERS: ATTEND Family Medicine
DX: L50.1 Idiopathic urticaria (principal); L56.8 Other specified acute skin changes due to ultraviolet radiation

== ENCOUNTER → 2017-01-27 | Outpatient (REF) | payer MEDICARE ==
[~2017-01-27] MED LIST changes: +NASA0.0517; -NASA0.057; -VITA100037 PO; +VITA100067 PO
[2017-01-27 12:54] LABS: ALBUMIN 3.2 GM/DL (3.2-5.2); ALBUMIN/GLOBULIN RATIO 1.14 (1.00-1.93); BILIRUBIN,TOTAL 0.4 MG/DL (0.2-1.0); CALCIUM LEVEL 9.4 MG/DL (8.8-10.2); GLOMERULAR FILTRATION RATE 56.6 (>32); POTASSIUM SERUM 4.4 MEQ/L (3.5-5.1)
== END ==
LOC: M SFHCPLAZ 07:49
PROVIDERS: ATTEND Internal Medicine
DX: I10 Essential (primary) hypertension (principal); E78.00 Pure hypercholesterolemia, unspecified

== ENCOUNTER → 2017-08-03 | Outpatient (REF) | payer MEDICARE ==
[2017-08-03 11:48] LABS: HEMATOCRIT 39.5 % (36.0-47.0); HEMOGLOBIN 12.6 g/dl (12.0-16.0); MEAN CORPUSCULAR HEMOGLOBIN 30.1 pg (27.0-33.0); MEAN CORPUSCULAR HGB CONC 31.9 g/dl (32.0-36.5); MEAN CORPUSCULAR VOLUME 94.5 fl (80.0-96.0); PLATELET COUNT, AUTOMATED 291 10^3/uL (150-450); RED BLOOD COUNT 4.18 10^6/uL (4.00-5.40); RED CELL DISTRIBUTION WIDTH 14.5 % (11.5-14.5); WHITE BLOOD COUNT 8.4 10^3/uL (4.0-10.0)
[2017-08-03 12:36] LABS: ALBUMIN 3.3 GM/DL (3.2-5.2); ALBUMIN/GLOBULIN RATIO 1.14 (1.00-1.93); ALKALINE PHOSPHATASE 87 U/L (45-117); ALT/SGPT 16 U/L (12-78); ANION GAP 8 MEQ/L (8-16); AST/SGOT 18 U/L (7-37); BILIRUBIN,TOTAL 0.4 MG/DL (0.2-1.0); BLOOD UREA NITROGEN 18 MG/DL (7-18); CALCIUM LEVEL 9.1 MG/DL (8.8-10.2); CARBON DIOXIDE LEVEL 27 MEQ/L (21-32); CHLORIDE LEVEL 111 MEQ/L (98-107); CREATININE FOR GFR 0.95 MG/DL (0.55-1.30); GLUCOSE, FASTING 87 MG/DL (70-100); MAGNESIUM LEVEL 2.1 MG/DL (1.8-2.4); POTASSIUM SERUM 4.6 MEQ/L (3.5-5.1); SODIUM LEVEL 146 MEQ/L (136-145); TOTAL PROTEIN 6.2 GM/DL (6.4-8.2)
== END ==
LOC: M SFHCPLAZ 08:12
DX: L50.8 Other urticaria (principal); I10 Essential (primary) hypertension; E03.9 Hypothyroidism, unspecified
CPT/HCPCS: 83735

== ENCOUNTER 2017-08-29 05:54 | Emergency (ER) | payer MEDICARE ==
[2017-08-29 06:57] LABS: BASO % 0.3 % (0.0-1.0); EOS # 0.5 10^3/uL (0.0-0.50); EOS % 5.2 % (0.0-3.0); HEMATOCRIT 37.5 % (36.0-47.0); HEMOGLOBIN 12.2 g/dl (12.0-16.0); IMMATURE GRANULOCYTE % 0.1 % (0-3.0); LYMPH # 1.8 10^3/uL (1.5-4.5); LYMPH % 21.2 % (24.0-44.0); MEAN CORPUSCULAR HEMOGLOBIN 30.4 pg (27.0-33.0); MEAN CORPUSCULAR HGB CONC 32.5 g/dl (32.0-36.5); MEAN CORPUSCULAR VOLUME 93.5 fl (80.0-96.0); MONO # 0.9 10^3/uL (0.0-0.8); MONO % 10.6 % (0.0-5.0); NEUTROPHILS # 5.4 10^3/uL (1.8-7.7); NEUTROPHILS % 62.6 % (36.0-66.0); PLATELET COUNT, AUTOMATED 258 10^3/uL (150-450); RED BLOOD COUNT 4.01 10^6/uL (4.00-5.40); RED CELL DISTRIBUTION WIDTH 14.2 % (11.5-14.5); WHITE BLOOD COUNT 8.6 10^3/uL (4.0-10.0)
[2017-08-29 07:11] LABS: INR 0.94; PROTHROMBIN TIME 12.7 SECONDS (12.4-14.5)
[2017-08-29 07:12] LABS: PARTIAL THROMBOPLASTIN TIME 27.8 SECONDS (26.8-37.9)
[2017-08-29 07:20] LABS: ANION GAP 6 MEQ/L (8-16); BLOOD UREA NITROGEN 21 MG/DL (7-18); CALCIUM LEVEL 9.1 MG/DL (8.8-10.2); CARBON DIOXIDE LEVEL 28 MEQ/L (21-32); CHLORIDE LEVEL 113 MEQ/L (98-107); CK-MB VALUE MASS 1.8 NG/ML (0.0-3.6); CPK CREATINE PHOSPHOKINASE 79 U/L (26-192); CREATININE FOR GFR 0.97 MG/DL (0.55-1.30); GLOMERULAR FILTRATION RATE 58.5 (>32); GLUCOSE, FASTING 94 MG/DL (70-100); MB/CK RELATIVE INDEX 2.27 (< OR =4); POTASSIUM SERUM 4.1 MEQ/L (3.5-5.1); SODIUM LEVEL 147 MEQ/L (136-145); TROPONIN I < 0.02 NG/ML (< 0.10)
[2017-08-29] MEDS: LEVOTHYROXINE 50MCG TABLET (0.05MG) PO (08:25)
[2017-08-29] MEDS ORDERED: ISOVUE-370 76% 100ML VIAL (Q9967) As Ordered (09:55)
== END 2017-08-29 11:58 | disposition home or self-care (01) ==
LOC: M ED 05:54
DX: R19.7 Diarrhea, unspecified (principal); I10 Essential (primary) hypertension; E78.9 Disorder of lipoprotein metabolism, unspecified; F41.9 Anxiety disorder, unspecified; F95.9 Tic disorder, unspecified; Z88.0 Allergy status to penicillin; Z88.2 Allergy status to sulfonamides; Z91.030 Bee allergy status; Z88.8 Allergy status to other drugs, medicaments and biological substances; Z79.899 Other long term (current) drug therapy; Z79.890 Hormone replacement therapy; Z79.82 Long term (current) use of aspirin
CPT/HCPCS: Q9967

== ENCOUNTER → 2018-02-09 | Outpatient (REF) | payer MEDICARE ==
[2018-02-09 12:41] LABS: ALBUMIN 3.3 GM/DL (3.2-5.2); ALBUMIN/GLOBULIN RATIO 1.03 (1.00-1.93); ALKALINE PHOSPHATASE 79 U/L (45-117); ALT/SGPT 17 U/L (12-78); ANION GAP 7 MEQ/L (8-16); AST/SGOT 18 U/L (7-37); BILIRUBIN,TOTAL 0.4 MG/DL (0.2-1.0); BLOOD UREA NITROGEN 20 MG/DL (7-18); CALCIUM LEVEL 8.9 MG/DL (8.8-10.2); CARBON DIOXIDE LEVEL 28 MEQ/L (21-32); CHLORIDE LEVEL 111 MEQ/L (98-107); CHOLESTEROL LEVEL 159 MG/DL (<200); CREATININE FOR GFR 0.92 MG/DL (0.55-1.30); GLOMERULAR FILTRATION RATE > 60.0 (>32); GLUCOSE, FASTING 83 MG/DL (70-100); HDL CHOLESTEROL 60 MG/DL (>40); MAGNESIUM LEVEL 1.9 MG/DL (1.8-2.4); NON-HDL-C 99 MG/DL; POTASSIUM SERUM 4.2 MEQ/L (3.5-5.1); SODIUM LEVEL 146 MEQ/L (136-145); TOTAL PROTEIN 6.5 GM/DL (6.4-8.2); TRIGLYCERIDES LEVEL 175 MG/DL (<150)
== END ==
LOC: M SFHCPLAZ 08:05
DX: I10 Essential (primary) hypertension (principal); E78.00 Pure hypercholesterolemia, unspecified
CPT/HCPCS: 83735

== ENCOUNTER → 2018-04-25 | Outpatient (CLI) | payer MEDICARE | LOC: M WHC 13:57 | DX: Z12.31 Encounter for screening mammogram for malignant neoplasm of breast (principal); Z78.0 Asymptomatic menopausal state | CPT/HCPCS: 77067 ==

== ENCOUNTER → 2018-08-12 | Outpatient (REF) | payer MEDICARE ==
[~2018-08-12] MED LIST changes: +ALLE180T33 PO; +XYZA5TAB2 PO; +ZANTTAB PO
== END ==
LOC: CANPREREF → M SFHCPLAZ 08:41
PROVIDERS: ATTEND Internal Medicine
DX: Z53.9 Procedure and treatment not carried out, unspecified reason (principal); Z79.899 Other long term (current) drug therapy; J30.9 Allergic rhinitis, unspecified; I10 Essential (primary) hypertension; E78.00 Pure hypercholesterolemia, unspecified; E03.9 Hypothyroidism, unspecified; M85.80 Other specified disorders of bone density and structure, unspecified site

== ENCOUNTER → 2018-08-12 | Outpatient (REF) | payer MEDICARE ==
[2018-08-12 12:23] LABS: HEMATOCRIT 39.4 % (36.0-47.0); HEMOGLOBIN 12.6 g/dl (12.0-15.5); MEAN CORPUSCULAR VOLUME 93.8 fl (80.0-96.0); PLATELET COUNT, AUTOMATED 263 10^3/uL (150-450); WHITE BLOOD COUNT 9.8 10^3/uL (4.0-10.0)
[2018-08-12 12:35] LABS: ALBUMIN 3.3 GM/DL (3.2-5.2); ALT/SGPT 17 U/L (12-78); BILIRUBIN,TOTAL 0.3 MG/DL (0.2-1.0); BLOOD UREA NITROGEN 20 MG/DL (7-18); CALCIUM LEVEL 8.8 MG/DL (8.8-10.2); CARBON DIOXIDE LEVEL 29 MEQ/L (21-32); CHLORIDE LEVEL 111 MEQ/L (98-107); CHOLESTEROL LEVEL 168 MG/DL (<200); GLOMERULAR FILTRATION RATE > 60.0 (>32); GLUCOSE, FASTING 81 MG/DL (70-100); HDL CHOLESTEROL 56 MG/DL (>40); LDL CHOLESTEROL 73 MG/DL (<100); MAGNESIUM LEVEL 1.9 MG/DL (1.8-2.4); NON-HDL-C 112 MG/DL; POTASSIUM SERUM 4.6 MEQ/L (3.5-5.1); SODIUM LEVEL 145 MEQ/L (136-145); TOTAL 25(OH) VITAMIN D 33.9 NG/ML (30.0-100.0); TRIGLYCERIDES LEVEL 195 MG/DL (<150)
== END ==
LOC: M LABDRAWP 08:40
PROVIDERS: ATTEND Internal Medicine
DX: Z79.899 Other long term (current) drug therapy (principal); J30.9 Allergic rhinitis, unspecified; I10 Essential (primary) hypertension; E78.00 Pure hypercholesterolemia, unspecified; E03.9 Hypothyroidism, unspecified; M85.80 Other specified disorders of bone density and structure, unspecified site

== ENCOUNTER → 2019-02-13 | Outpatient (REF) | payer MEDICARE ==
[~2019-02-13] MED LIST changes: +LISI10TA15 PO; -LISI10TA2 PO; -MAGN1TAB25 PO; +MAGN1TAB26 PO; +ZANT150T40 PO; -ZANTTAB PO
[2019-02-13 11:46] LABS: ALBUMIN 3.2 GM/DL (3.2-5.2); BILIRUBIN,TOTAL 0.4 MG/DL (0.2-1.0); CHOLESTEROL RISK RATIO 2.771 (<5); CREATININE FOR GFR 0.97 MG/DL (0.55-1.30); GLOMERULAR FILTRATION RATE 58.4 (>32); MAGNESIUM LEVEL 1.9 MG/DL (1.8-2.4); POTASSIUM SERUM 4.3 MEQ/L (3.5-5.1); TOTAL PROTEIN 6.1 GM/DL (6.4-8.2)
== END ==
LOC: M SFHCPLAZ 09:20
PROVIDERS: ATTEND Internal Medicine
DX: I10 Essential (primary) hypertension (principal); E78.00 Pure hypercholesterolemia, unspecified

== ENCOUNTER → 2019-08-01 | Outpatient (CLI) | payer MEDICARE ==
--- NOTE | 2019-08-01 15:21 | REPMRS ---
Patient History The patient states she has not had a clinical breast exam in over a year. No known family history of cancer. No Hormone Replacement Therapy Digital Woman Screen Mammo: August 01, 2019 - Exam #: [id number] Bilateral CC and MLO view(s) were taken. Technologist: Sarah Marino, Technologist Prior study comparison: April 25, 2018, bilateral digital woman screen mammo performed at [facility]. April 22, 2017, digital woman screen mammo performed at [facility]. April 10, 2016, digital woman screen mammo performed at [facility]. FINDINGS: There are scattered fibroglandular densities. There has been no change in the appearance of the mammogram from the prior studies. There is a mild amount of scattered fibroglandular density which is fairly symmetric. There is no interval development of dominant mass, architectural distortion, or grouped microcalcification suggestive of malignancy. 3-D tomosynthesis shows no additional findings. Assessment: BI-RADS/ACR category 2 mammogram. Benign Findings. Recommendation Routine screening mammogram of both breasts in 1 year. This patient's Lifetime Breast Cancer RIsk is estimated at 0.4 %. This mammogram was interpreted with the aid of an FDA-approved computer-aided dectection system. Electronically Signed By: Kevan Arreguin MD 08/01/19 [id number]
== END ==
LOC: M WHC 12:44
PROVIDERS: ATTEND Internal Medicine
DX: Z12.31 Encounter for screening mammogram for malignant neoplasm of breast (principal); M85.88 Other specified disorders of bone density and structure, other site

== ENCOUNTER → 2019-08-11 | Outpatient (CLI) | payer MEDICARE ==
[2019-08-11 11:19] LABS: HEMATOCRIT 40.9 % (36.0-47.0); HEMOGLOBIN 12.9 g/dl (12.0-15.5); MEAN CORPUSCULAR HEMOGLOBIN 29.8 pg (27.0-33.0); MEAN CORPUSCULAR HGB CONC 31.5 g/dl (32.0-36.5); MEAN CORPUSCULAR VOLUME 94.5 fl (80.0-96.0); PLATELET COUNT, AUTOMATED 295 10^3/uL (150-450); RED BLOOD COUNT 4.33 10^6/uL (4.00-5.40); WHITE BLOOD COUNT 9.1 10^3/uL (4.0-10.0)
[2019-08-11 12:01] LABS: ALBUMIN 3.4 GM/DL (3.2-5.2); BILIRUBIN,TOTAL 0.4 MG/DL (0.2-1.0); CALCIUM LEVEL 9.3 MG/DL (8.8-10.2); CREATININE FOR GFR 0.99 MG/DL (0.55-1.30); GLOMERULAR FILTRATION RATE 56.9 (>32); POTASSIUM SERUM 4.6 MEQ/L (3.5-5.1); THYROID STIMULATING HORMONE 3.19 uIU/ML (0.358-3.740); TOTAL PROTEIN 6.2 GM/DL (6.4-8.2)
== END ==
LOC: M PLALAB 08:19
PROVIDERS: ATTEND Internal Medicine
DX: I10 Essential (primary) hypertension (principal)

== ENCOUNTER → 2020-02-28 | Outpatient (CLI) | payer MEDICARE ==
[~2020-02-28] MED LIST changes: -ASPI81TA85 PO; +ASPI81TA86 PO
[2020-02-28 11:37] LABS: ALBUMIN 3.1 GM/DL (3.2-5.2); ALT/SGPT 15 U/L (12-78); BILIRUBIN,TOTAL 0.3 MG/DL (0.2-1.0); BLOOD UREA NITROGEN 21 MG/DL (7-18); C REACTIVE PROTEIN QUANTITATIV 0.47 MG/DL (0.00-0.30); CALCIUM LEVEL 9.1 MG/DL (8.8-10.2); CARBON DIOXIDE LEVEL 28 MEQ/L (21-32); CHLORIDE LEVEL 112 MEQ/L (98-107); CHOLESTEROL LEVEL 167 MG/DL (<200); CHOLESTEROL RISK RATIO 3.036 (<5); CPK CREATINE PHOSPHOKINASE 88 U/L (26-192); CREATININE FOR GFR 0.94 MG/DL (0.55-1.30); GLOMERULAR FILTRATION RATE > 60.0 (>32); GLUCOSE, FASTING 87 MG/DL (70-100); HDL CHOLESTEROL 55 MG/DL (>40); LDL CHOLESTEROL 82 MG/DL (<100); NON-HDL-C 112 MG/DL; POTASSIUM SERUM 4.9 MEQ/L (3.5-5.1); RHEUMATOID FACTOR QUANT < 10.0 IU/ML (<15.0); SODIUM LEVEL 143 MEQ/L (136-145); TOTAL PROTEIN 6.2 GM/DL (6.4-8.2); TRIGLYCERIDES LEVEL 148 MG/DL (<150); URIC ACID 5.8 MG/DL (2.6-6.0)
[2020-02-28 13:06] LABS: TOTAL 25(OH) VITAMIN D 50.4 NG/ML (30.0-100.0)
[2020-03-01 01:07] LABS: ANTINUCLEAR ANTIBODIES DIRECT Negative (Negative); CYCLIC CITRULLINATED PEPTIDE 3 units (0-19); Lyme Disease IgG/IgM Antibodie <0.91 ISR (0.00-0.90); Lyme Disease IgM Ab Quantitati <0.80 index (0.00-0.79)
== END ==
LOC: M PLALAB 08:08
PROVIDERS: ATTEND Internal Medicine
DX: I10 Essential (primary) hypertension (principal); E03.9 Hypothyroidism, unspecified; E78.00 Pure hypercholesterolemia, unspecified; L50.8 Other urticaria; M81.0 Age-related osteoporosis without current pathological fracture; M19.90 Unspecified osteoarthritis, unspecified site

== ENCOUNTER → 2020-05-23 | Outpatient (REF) | payer MEDICARE | LOC: M SFHCPLAZ 16:54 | PROVIDERS: ATTEND Physician Assistant | DX: R10.2 Pelvic and perineal pain (principal) ==

== ENCOUNTER → 2020-06-12 | Outpatient (REF) | payer MEDICARE ==
[2020-06-12 17:19] LABS: APPEARANCE, URINE HAZY (CLEAR); BACTERIA, URINE AUTO NEGATIVE (NEGATIVE); BILIRUBIN, URINE AUTO NEGATIVE (NEGATIVE); BLOOD, URINE BLOOD NEGATIVE (NEGATIVE); COLOR, URINE YELLOW (YELLOW); GLUCOSE, URINE (UA) AUTO NEGATIVE (NEGATIVE); KETONE, URINE AUTO TRACE mg/dL (NEGATIVE); LEUKOCYTE ESTERASE, URINE AUTO 2+ (NEGATIVE); MUCUS, URINE SMALL (NEGATIVE); NITRITE, URINE AUTO NEGATIVE (NEGATIVE); PROTEIN, URINE AUTO NEGATIVE (NEGATIVE); RBC, URINE AUTO 4 /HPF (0-3); SPECIFIC GRAVITY URINE AUTO 1.019 (1.002-1.035); SQUAMOUS EPITHELIAL CELL UR AU 0 /HPF (0-6); UROBILINOGEN, URINE AUTO 0.2 mg/dL (0.0-2.0); WBC, URINE AUTO 42 /HPF (0-3)
== END ==
LOC: M SFHCPLAZ 16:48
PROVIDERS: ATTEND Physician Assistant
DX: R31.9 Hematuria, unspecified (principal)
CPT/HCPCS: 81001; G0463

== ENCOUNTER → 2020-08-19 | Outpatient (REF) | payer MEDICARE ==
[2020-08-19 10:52] LABS: BASO # 0.1 10^3/uL (0.0-0.2); BASO % 0.6 % (0.0-1.0); EOS # 0.5 10^3/uL (0.0-0.5); EOS % 6.2 % (0.0-3.0); HEMATOCRIT 40.8 % (36.0-47.0); HEMOGLOBIN 12.7 g/dl (12.0-15.5); LYMPH # 1.9 10^3/uL (1.5-5.0); LYMPH % 22.9 % (24.0-44.0); MEAN CORPUSCULAR HEMOGLOBIN 29.5 pg (27.0-33.0); MEAN CORPUSCULAR HGB CONC 31.1 g/dl (32.0-36.5); MEAN CORPUSCULAR VOLUME 94.7 fl (80.0-96.0); MONO # 0.8 10^3/uL (0.0-0.8); MONO % 9.4 % (2.0-8.0); NEUTROPHILS # 5.1 10^3/uL (1.5-8.5); NEUTROPHILS % 60.7 % (36.0-66.0); PLATELET COUNT, AUTOMATED 294 10^3/uL (150-450); RED BLOOD COUNT 4.31 10^6/uL (4.00-5.40); WHITE BLOOD COUNT 8.4 10^3/uL (4.0-10.0)
[2020-08-19 11:12] LABS: ALBUMIN 3.2 GM/DL (3.2-5.2); ALT/SGPT 16 U/L (12-78); BILIRUBIN,TOTAL 0.4 MG/DL (0.2-1.0); BLOOD UREA NITROGEN 17 MG/DL (7-18); C REACTIVE PROTEIN QUANTITATIV 0.42 MG/DL (0.00-0.30); CALCIUM LEVEL 9.6 MG/DL (8.8-10.2); CARBON DIOXIDE LEVEL 28 MEQ/L (21-32); CHLORIDE LEVEL 112 MEQ/L (98-107); CREATININE FOR GFR 0.97 MG/DL (0.55-1.30); GLOMERULAR FILTRATION RATE 58.1 (>32); GLUCOSE, FASTING 89 MG/DL (70-100); MAGNESIUM LEVEL 1.9 MG/DL (1.8-2.4); POTASSIUM SERUM 4.8 MEQ/L (3.5-5.1); SODIUM LEVEL 142 MEQ/L (136-145); TOTAL PROTEIN 6.4 GM/DL (6.4-8.2)
[2020-08-19 11:18] LABS: ERYTHROCYTE SEDIMENTATION RATE 39 mm/hr (0-30)
== END ==
LOC: M PLALAB 08:23
PROVIDERS: ATTEND Internal Medicine
DX: J30.9 Allergic rhinitis, unspecified (principal); I10 Essential (primary) hypertension; M13.0 Polyarthritis, unspecified; Z11.59 Encounter for screening for other viral diseases
CPT/HCPCS: 36415; 80053; 83735; 85025; 85652; 86140; G0472

== ENCOUNTER → 2021-02-25 | Outpatient (REF) | payer MEDICARE | LOC: M SFHCPLAZ 14:45 | PROVIDERS: ATTEND Internal Medicine | DX: E78.00 Pure hypercholesterolemia, unspecified (principal); I10 Essential (primary) hypertension; E03.9 Hypothyroidism, unspecified ==

== ENCOUNTER → 2021-02-25 | Outpatient (CLI) | payer MEDICARE ==
[2021-02-25 19:02] LABS: ALT/SGPT 16 U/L (12-78); BILIRUBIN,TOTAL 0.3 MG/DL (0.2-1.0); BLOOD UREA NITROGEN 14 MG/DL (7-18); CALCIUM LEVEL 8.5 MG/DL (8.8-10.2); CARBON DIOXIDE LEVEL 28 MEQ/L (21-32); CHLORIDE LEVEL 112 MEQ/L (98-107); CHOLESTEROL LEVEL 167 MG/DL (<200); CREATININE FOR GFR 0.91 MG/DL (0.55-1.30); GLOMERULAR FILTRATION RATE > 60.0 (>32); GLUCOSE, FASTING 85 MG/DL (70-100); HDL CHOLESTEROL 53 MG/DL (>40); LDL CHOLESTEROL 79 MG/DL (<100); NON-HDL-C 114 MG/DL; POTASSIUM SERUM 4.8 MEQ/L (3.5-5.1); SODIUM LEVEL 143 MEQ/L (136-145); TOTAL PROTEIN 6.1 GM/DL (6.4-8.2); TRIGLYCERIDES LEVEL 174 MG/DL (<150)
== END ==
LOC: M PLALAB 14:58
PROVIDERS: ATTEND Internal Medicine
DX: E78.00 Pure hypercholesterolemia, unspecified (principal); I10 Essential (primary) hypertension; E03.9 Hypothyroidism, unspecified
CPT/HCPCS: 36415; 80053; 80061; 83735; 84443; G0463

== ENCOUNTER → 2021-08-05 | Outpatient (CLI) | payer MEDICARE ==
[~2021-08-05] MED LIST changes: -LISI10TA15 PO; +LISI10TA24 PO
== END ==
LOC: M WUC 11:55
PROVIDERS: ATTEND Physician Assistant
DX: S60.111A Contusion of right thumb with damage to nail, initial encounter (principal); X58.XXXA Exposure to other specified factors, initial encounter; Y92.89 Other specified places as the place of occurrence of the external cause; Y93.9 Activity, unspecified; Y99.9 Unspecified external cause status

== ENCOUNTER → 2021-08-25 | Outpatient (CLI) | payer MEDICARE ==
[2021-08-25 13:22] LABS: BASO # 0.1 10^3/uL (0.0-0.2); BASO % 0.7 % (0.0-1.0); EOS # 0.6 10^3/uL (0.0-0.5); EOS % 7.2 % (0.0-3.0); HEMATOCRIT 38.7 % (36.0-47.0); HEMOGLOBIN 12.3 g/dl (12.0-15.5); LYMPH # 1.9 10^3/uL (1.5-5.0); LYMPH % 22.6 % (24.0-44.0); MEAN CORPUSCULAR HEMOGLOBIN 30.1 pg (27.0-33.0); MEAN CORPUSCULAR HGB CONC 31.8 g/dl (32.0-36.5); MEAN CORPUSCULAR VOLUME 94.9 fl (80.0-96.0); MONO % 11.6 % (2.0-8.0); NEUTROPHILS # 4.8 10^3/uL (1.5-8.5); NEUTROPHILS % 57.7 % (36.0-66.0); PLATELET COUNT, AUTOMATED 282 10^3/uL (150-450); RED BLOOD COUNT 4.08 10^6/uL (4.00-5.40); WHITE BLOOD COUNT 8.3 10^3/uL (4.0-10.0)
[2021-08-25 14:00] LABS: ALBUMIN 3.2 GM/DL (3.2-5.2); ALT/SGPT 22 U/L (12-78); BILIRUBIN,TOTAL 0.3 MG/DL (0.2-1.0); BLOOD UREA NITROGEN 22 MG/DL (7-18); CALCIUM LEVEL 9.2 MG/DL (8.8-10.2); CARBON DIOXIDE LEVEL 28 MEQ/L (21-32); CHLORIDE LEVEL 113 MEQ/L (98-107); CHOLESTEROL LEVEL 171 MG/DL (<200); CHOLESTEROL RISK RATIO 2.898 (<5); GLOMERULAR FILTRATION RATE > 60.0 (>32); GLUCOSE, FASTING 92 MG/DL (70-100); HDL CHOLESTEROL 59 MG/DL (>40); LDL CHOLESTEROL 88 MG/DL (<100); NON-HDL-C 112 MG/DL; POTASSIUM SERUM 4.7 MEQ/L (3.5-5.1); SODIUM LEVEL 145 MEQ/L (136-145); TOTAL PROTEIN 6.2 GM/DL (6.4-8.2); TRIGLYCERIDES LEVEL 120 MG/DL (<150)
[2021-08-26 13:13] LABS: TOTAL 25(OH) VITAMIN D 42.1 NG/ML (30.0-100.0)
== END ==
LOC: M PLALAB 09:32
PROVIDERS: ATTEND Internal Medicine
DX: I10 Essential (primary) hypertension (principal); E78.00 Pure hypercholesterolemia, unspecified; K21.9 Gastro-esophageal reflux disease without esophagitis; M81.0 Age-related osteoporosis without current pathological fracture

== ENCOUNTER → 2021-09-22 | Outpatient (CLI) | payer MEDICARE | LOC: M WHC 10:22 | PROVIDERS: ATTEND Internal Medicine | DX: Z12.31 Encounter for screening mammogram for malignant neoplasm of breast (principal) ==

== ENCOUNTER → 2022-03-02 | Outpatient (CLI) | payer MEDICARE ==
[2022-03-02 11:38] LABS: ALBUMIN 3.1 GM/DL (3.2-5.2); ALT/SGPT 14 U/L (12-78); BILIRUBIN,TOTAL 0.4 MG/DL (0.2-1.0); BLOOD UREA NITROGEN 17 MG/DL (7-18); CALCIUM LEVEL 9.6 MG/DL (8.8-10.2); CARBON DIOXIDE LEVEL 28 MEQ/L (21-32); CHLORIDE LEVEL 108 MEQ/L (98-107); CHOLESTEROL LEVEL 163 MG/DL (<200); CREATININE FOR GFR 0.93 MG/DL (0.55-1.30); GLOMERULAR FILTRATION RATE > 60.0 (>32); GLUCOSE, FASTING 92 MG/DL (70-100); HDL CHOLESTEROL 56 MG/DL (>40); LDL CHOLESTEROL 78 MG/DL (<100); NON-HDL-C 107 MG/DL; POTASSIUM SERUM 4.5 MEQ/L (3.5-5.1); SODIUM LEVEL 140 MEQ/L (136-145); TRIGLYCERIDES LEVEL 143 MG/DL (<150)
== END ==
LOC: M PLALAB 08:39
PROVIDERS: ATTEND Internal Medicine
DX: E03.9 Hypothyroidism, unspecified (principal); E78.00 Pure hypercholesterolemia, unspecified

== ENCOUNTER → 2022-08-04 | Outpatient (REF) | payer MEDICARE | LOC: M SFHCPLAZ 16:53 | PROVIDERS: ATTEND Physician Assistant | DX: J01.90 Acute sinusitis, unspecified (principal) ==

== ENCOUNTER → 2022-08-25 | Outpatient (CLI) | payer MEDICARE ==
[~2022-08-25] MED LIST changes: +MONT-5 PO; +SIMV-254 PO; -SING10TA32 PO; -ZOCO40TA PO
[2022-08-25 11:12] LABS: BILIRUBIN,TOTAL 0.4 MG/DL (0.3-1.2); CALCIUM LEVEL 8.9 MG/DL (8.3-10.6); CHOLESTEROL RISK RATIO 2.98 (<5); CREATININE FOR GFR 1.02 MG/DL (0.55-1.30); GLOMERULAR FILTRATION RATE 54.6 (>32); HDL CHOLESTEROL 55.2 MG/DL (>40); LDL CHOLESTEROL 81.4 MG/DL (<100); POTASSIUM SERUM 4.8 MMOL/L (3.5-5.1); TOTAL PROTEIN 5.8 G/DL (5.7-8.2)
[2022-08-25 11:13] LABS: THYROID STIMULATING HORMONE 4.264 uIU/ML (0.55-4.78); TOTAL 25(OH) VITAMIN D 50.3 NG/ML (20.0-100.0)
== END ==
LOC: M PLALAB 08:28
PROVIDERS: ATTEND Nurse Practitioner Adult Health
DX: E55.9 Vitamin D deficiency, unspecified (principal); E78.00 Pure hypercholesterolemia, unspecified; I10 Essential (primary) hypertension; E03.9 Hypothyroidism, unspecified; Z79.899 Other long term (current) drug therapy

== ENCOUNTER → 2022-08-26 | Outpatient (REF) | payer MEDICARE | LOC: M SFHCPLAZ 17:26 | PROVIDERS: ATTEND Nurse Practitioner Adult Health | DX: Z20.818 Contact with and (suspected) exposure to other bacterial communicable diseases (principal) ==

== ENCOUNTER 2022-08-29 03:33 | Inpatient (IN) | payer MEDICARE ==
[2022-08-29] VITALS (7 sets, daily range): BP systolic 108–129; BP diastolic 53–61; O2SAT 94–95
[~2022-08-29] VITALS: Ht 165.1 cm; Wt 76.2 kg
[2022-08-29] MEDS ORDERED: ASPIRIN 81MG CHEW TABLET PO ONE (03:45)
[2022-08-29] MEDS ORDERED: methylPREDNISolone 125MG 2ML VIAL IV ONE (03:45)
[2022-08-29 04:04] LABS: HEMATOCRIT 43.4 % (36.0-47.0); MEAN CORPUSCULAR HEMOGLOBIN 29.7 pg (27.0-33.0); MEAN CORPUSCULAR VOLUME 99.1 fl (80.0-96.0); PLATELET COUNT, AUTOMATED 416 10^3/uL (150-450); RED BLOOD COUNT 4.38 10^6/uL (4.00-5.40); WHITE BLOOD COUNT 14.1 10^3/uL (4.0-10.0)
[2022-08-29] MEDS ORDERED: FUROSEMIDE 40MG/4ML VIAL IV ONE (04:05)
[2022-08-29 04:18] LABS: ATYPICAL LYMPH 8 % (0-5); BASOPHILS 1 % (0-1); EOSINOPHILS 2 % (0-3); LYMPHOCYTES 30 % (16-44); MONOCYTES 11 % (0-5); NEUTROPHILS 48 % (28-66)
[2022-08-29] MEDS: IPRATROPIUM 0.5MG/ALBUTEROL 2.5MG INH SOL UD 3ML (DUONEB) NEB PRN ×2 (04:18→04:19)
[2022-08-29 04:19] LABS: PLATELET ESTIMATE NORMAL (NORMAL)
[2022-08-29 04:33] LABS: BILIRUBIN,DIRECT 0.1 MG/DL (<0.4); BILIRUBIN,TOTAL 0.5 MG/DL (0.3-1.2); CALCIUM LEVEL 9.2 MG/DL (8.3-10.6); CK-MB VALUE MASS 2.6 NG/ML (<3.6); CREATININE FOR GFR 1.05 MG/DL (0.55-1.30); GLOMERULAR FILTRATION RATE 52.8 (>32); MB/CK RELATIVE INDEX 2.76 (< OR =4); POTASSIUM SERUM 5.4 MMOL/L (3.5-5.1)
[2022-08-29] MEDS ORDERED: PIPERACILLIN/TAZOBACTAM SOD 4.5 GM in D5W MINI-BAG PLUS 50 ML IV ONE (05:00)
[2022-08-29 05:35] LABS: ABG BASE EXCESS -5.8 (-2.0-2.0); ABG HCO3 19.6 MEQ/L (22.0-26.0); ABG O2 SATURATION 96.2 % (95.0-99.0); ABG PARTIAL PRESSURE CO2 38.4 mmHg (35.0-45.0); ABG PARTIAL PRESSURE O2 88.9 mmHg (75.0-100.0); ABG STANDARD HCO3 19.7 MEQ/L (22.0-26.0); ABG TOTAL CO2 20.8 MEQ/L (23.0-31.0); ABG pH (ARTERIAL) 7.326 UNITS (7.350-7.450)
[2022-08-29 06:29] LABS: CK-MB VALUE MASS 2.7 NG/ML (<3.6); MB/CK RELATIVE INDEX 3.13 (< OR =4)
[2022-08-29] MEDS ORDERED: MULTTAB61 PO (10:55)
[2022-08-29] MEDS ORDERED: ASPI81TA26 PO (10:55)
[2022-08-29] MEDS ORDERED: LEVOTAB10 PO (10:55)
[2022-08-29] MEDS ORDERED: FIBE62TA PO (10:55)
[2022-08-29] MEDS ORDERED: SIMV40TA20 PO (10:55)
[2022-08-29] MEDS ORDERED: ALEN70TA82 PO (10:55)
[2022-08-29] MEDS ORDERED: VITA100093 PO (10:55)
[2022-08-29] MEDS ORDERED: MAGN400T2 PO (10:56)
[2022-08-29] MEDS ORDERED: HOME MED LIST COMPLETE! XX SCH (11:00)
[2022-08-29 11:59] LABS: CK-MB VALUE MASS 3.1 NG/ML (<3.6)
[2022-08-29 12:01] LABS: CALCIUM LEVEL 9.2 MG/DL (8.3-10.6); CREATININE FOR GFR 1.12 MG/DL (0.55-1.30); MAGNESIUM LEVEL 1.8 MG/DL (1.8-2.4); POTASSIUM SERUM 4.6 MMOL/L (3.5-5.1)
[2022-08-29 12:05] LABS: MB/CK RELATIVE INDEX 4.02 (< OR =4)
[2022-08-29] MEDS: cefTRIAXone SOD 1 GM in D5W MINI-BAG PLUS 50 ML IV SCH (13:06)
[2022-08-29] MEDS: ENOXAPARIN 40MG/0.4ML SYRINGE (J1650 PER 10MG) SC SCH (13:06)
[2022-08-29] MEDS: VITAMIN D 1,000 INTERNATIONAL UNITS TABLET PO SCH (13:09)
[2022-08-29] MEDS: CARVedilol 6.25 MG TAB PO SCH ×2 (13:09→20:49)
[2022-08-29] MEDS: LEVOTHYROXINE 50MCG TABLET (0.05MG) PO SCH (13:09)
[2022-08-29] MEDS: MULTIVITAMINS/MINERALS THERAP 1 TAB PO SCH (13:10)
[2022-08-29] MEDS: DOXYCYCLINE HYCLATE 100 MG in D5W MINI-BAG PLUS 100 ML IV SCH (15:00)
[2022-08-29] MEDS: busPIRone 10 MG TAB PO SCH ×2 (15:00→20:49)
[2022-08-29] MEDS ORDERED: FUROSEMIDE 40MG/4ML VIAL IV SCH (17:00)
[2022-08-29] MEDS: DAPAGLIFLOZIN PROPANEDIOL 10MG TABLET (FARXIGA) PO SCH (17:12)
[2022-08-29] MEDS: FIBER-CON 625 MG TAB PO SCH (20:48)
[2022-08-29] MEDS: FEXOFENADINE 60MG TAB PO SCH (20:49)
[2022-08-29] MEDS: MAGNESIUM OXIDE 400MG TAB (MAG-OX) PO SCH (20:49)
[2022-08-29] MEDS: SIMVASTATIN 40 MG TAB PO SCH (20:49)
[2022-08-30] VITALS (14 sets, daily range): BP systolic 97–119; BP diastolic 50–61; O2SAT 92–97
[2022-08-30] MEDS ORDERED: UNRESOLVED CLARIFICATION ENTRY XX SCH (00:01)
[2022-08-30] MEDS: DOXYCYCLINE HYCLATE 100 MG in D5W MINI-BAG PLUS 100 ML IV SCH ×2 (01:09→13:25)
[2022-08-30 05:30] LABS: HEMATOCRIT 34.4 % (36.0-47.0); MEAN CORPUSCULAR HEMOGLOBIN 30.4 pg (27.0-33.0); MEAN CORPUSCULAR HGB CONC 31.7 g/dl (32.0-36.5); MEAN CORPUSCULAR VOLUME 95.8 fl (80.0-96.0); PLATELET COUNT, AUTOMATED 273 10^3/uL (150-450); RED BLOOD COUNT 3.59 10^6/uL (4.00-5.40); WHITE BLOOD COUNT 16.2 10^3/uL (4.0-10.0)
[2022-08-30 05:38] LABS: HEMOGLOBIN 10.9 g/dl (12.0-15.5)
[2022-08-30 05:59] LABS: ALBUMIN 2.7 G/DL (3.2-5.2); BILIRUBIN,TOTAL 0.3 MG/DL (0.3-1.2); CREATININE FOR GFR 1.22 MG/DL (0.55-1.30); GLOMERULAR FILTRATION RATE 44.4 (>32); MAGNESIUM LEVEL 1.8 MG/DL (1.8-2.4); POTASSIUM SERUM 3.9 MMOL/L (3.5-5.1); TOTAL PROTEIN 5.3 G/DL (5.7-8.2)
[2022-08-30] MEDS: LEVOTHYROXINE 50MCG TABLET (0.05MG) PO SCH (06:07)
[2022-08-30] MEDS: ASPIRIN 81MG ENTERIC TABLET PO SCH (09:16)
[2022-08-30] MEDS: MULTIVITAMINS/MINERALS THERAP 1 TAB PO SCH (09:17)
[2022-08-30] MEDS: busPIRone 10 MG TAB PO SCH ×2 (09:17→20:46)
[2022-08-30] MEDS: VITAMIN D 1,000 INTERNATIONAL UNITS TABLET PO SCH (09:17)
[2022-08-30] MEDS: CARVedilol 3.125 MG TAB PO SCH ×2 (09:17→20:46)
[2022-08-30] MEDS: DAPAGLIFLOZIN PROPANEDIOL 10MG TABLET (FARXIGA) PO SCH (09:17)
[2022-08-30] MEDS: ENOXAPARIN 40MG/0.4ML SYRINGE (J1650 PER 10MG) SC SCH (09:18)
[2022-08-30] MEDS: FUROSEMIDE 20 MG TAB PO SCH (12:09)
[2022-08-30] MEDS: SPIRONOLACTONE 12.5MG PER 1/2 TABLET PO SCH (12:09)
[2022-08-30] MEDS: cefTRIAXone SOD 1 GM in D5W MINI-BAG PLUS 50 ML IV SCH (12:09)
[2022-08-30] MEDS: MAGNESIUM OXIDE 400MG TAB (MAG-OX) PO SCH (20:45)
[2022-08-30] MEDS: DOXYCYCLINE HYCLATE 100MG TABLET PO SCH (20:46)
[2022-08-30] MEDS: FEXOFENADINE 60MG TAB PO SCH (20:46)
[2022-08-30] MEDS: FIBER-CON 625 MG TAB PO SCH (20:46)
[2022-08-30] MEDS: SIMVASTATIN 40 MG TAB PO SCH (20:47)
[2022-08-31] VITALS (16 sets, daily range): BP systolic 102–122; BP diastolic 53–59; O2SAT 90–99
[2022-08-31] MEDS: LEVOTHYROXINE 50MCG TABLET (0.05MG) PO SCH (06:02)
[2022-08-31 06:04] LABS: HEMATOCRIT 34.9 % (36.0-47.0); MEAN CORPUSCULAR HEMOGLOBIN 30.3 pg (27.0-33.0); MEAN CORPUSCULAR HGB CONC 31.5 g/dl (32.0-36.5); MEAN CORPUSCULAR VOLUME 96.1 fl (80.0-96.0); PLATELET COUNT, AUTOMATED 257 10^3/uL (150-450); RED BLOOD COUNT 3.63 10^6/uL (4.00-5.40); WHITE BLOOD COUNT 13.4 10^3/uL (4.0-10.0)
[2022-08-31 06:24] LABS: HEMOGLOBIN A1c 5.2 % (4.0-6.0)
[2022-08-31 06:33] LABS: ALBUMIN 2.7 G/DL (3.2-5.2); BILIRUBIN,TOTAL 0.3 MG/DL (0.3-1.2); CALCIUM LEVEL 9.1 MG/DL (8.3-10.6); CREATININE FOR GFR 1.14 MG/DL (0.55-1.30); MAGNESIUM LEVEL 1.8 MG/DL (1.8-2.4); POTASSIUM SERUM 4.2 MMOL/L (3.5-5.1); TOTAL PROTEIN 5.2 G/DL (5.7-8.2)
[2022-08-31] MEDS: ENOXAPARIN 40MG/0.4ML SYRINGE (J1650 PER 10MG) SC SCH (09:07)
[2022-08-31] MEDS: MULTIVITAMINS/MINERALS THERAP 1 TAB PO SCH (09:07)
[2022-08-31] MEDS: busPIRone 10 MG TAB PO SCH (09:08)
[2022-08-31] MEDS: CARVedilol 3.125 MG TAB PO SCH (09:09)
[2022-08-31] MEDS: DOXYCYCLINE HYCLATE 100MG TABLET PO SCH (09:09)
[2022-08-31] MEDS: ASPIRIN 81MG ENTERIC TABLET PO SCH (09:09)
[2022-08-31] MEDS: FUROSEMIDE 20 MG TAB PO SCH (09:09)
[2022-08-31] MEDS: VITAMIN D 1,000 INTERNATIONAL UNITS TABLET PO SCH (09:10)
[2022-08-31] MEDS: SPIRONOLACTONE 12.5MG PER 1/2 TABLET PO SCH (09:10)
[2022-08-31] MEDS: DAPAGLIFLOZIN PROPANEDIOL 10MG TABLET (FARXIGA) PO SCH (09:10)
[2022-08-31] MEDS ORDERED: FURO20TA2 PO (11:05)
[2022-08-31] MEDS ORDERED: FARX1TAB3 PO (11:05)
[2022-08-31] MEDS ORDERED: DOXY100T PO (11:05)
[2022-08-31] MEDS ORDERED: CARV3.12 PO (11:05)
[2022-08-31] MEDS ORDERED: ALDA25TA2 PO (11:06)
[2022-08-31] MEDS ORDERED: PROB250C PO (11:06)
[2022-08-31] MEDS ORDERED: COLA100C5 PO (11:09)
[2022-08-31] MEDS ORDERED: CEFD300C41 PO (11:17)
[2022-08-31] MEDS: cefTRIAXone SOD 1 GM in D5W MINI-BAG PLUS 50 ML IV SCH (12:13)
[2022-08-31] MEDS ORDERED: JARD1TAB3 PO (14:07)
== END 2022-08-31 16:03 | disposition home health service (06) | DRG 291 ==
LOC: M ED 03:33 → EDBD 03:33 → M ED INP 09:48 → ENRESERV 10:22 → M PCU 10:58
PROVIDERS: ADMIT Internal Medicine; ATTEND Internal Medicine
DX: I11.0 Hypertensive heart disease with heart failure (principal); I50.21 Acute systolic (congestive) heart failure; E03.9 Hypothyroidism, unspecified; E78.00 Pure hypercholesterolemia, unspecified; G43.909 Migraine, unspecified, not intractable, without status migrainosus; K21.9 Gastro-esophageal reflux disease without esophagitis; E78.5 Hyperlipidemia, unspecified; K57.90 Diverticulosis of intestine, part unspecified, without perforation or abscess without bleeding; F41.9 Anxiety disorder, unspecified; M19.90 Unspecified osteoarthritis, unspecified site; E87.5 Hyperkalemia; Z86.73 Personal history of transient ischemic attack (TIA), and cerebral infarction without residual deficits; G47.33 Obstructive sleep apnea (adult) (pediatric); Z88.2 Allergy status to sulfonamides; Z91.030 Bee allergy status; Z88.8 Allergy status to other drugs, medicaments and biological substances; Z79.82 Long term (current) use of aspirin; Z79.899 Other long term (current) drug therapy; Z98.41 Cataract extraction status, right eye; Z98.42 Cataract extraction status, left eye; R06.03 Acute respiratory distress; K44.9 Diaphragmatic hernia without obstruction or gangrene

== ENCOUNTER → 2022-10-30 | Outpatient (CLI) | payer MEDICARE ==
[~2022-10-30] MED LIST changes: +ALDA25TA2 PO; +ALEN70TA82 PO; +ASPI81TA26 PO; +CARV3.12 PO; +CEFD300C41 PO; +COLA100C5 PO; +DOXY100T PO; +FARX1TAB3 PO; +FIBE62TA PO; +FURO20TA2 PO; +JARD1TAB3 PO; +LEVOTAB10 PO; +MAGN400T2 PO; +MULTTAB61 PO; +PROB250C PO; +SIMV40TA20 PO; +VITA100093 PO
== END ==
LOC: M WHC 09:58
PROVIDERS: ATTEND Nurse Practitioner Adult Health
DX: Z12.31 Encounter for screening mammogram for malignant neoplasm of breast (principal); I10 Essential (primary) hypertension

== ENCOUNTER → 2022-10-30 | Outpatient (CLI) | payer MEDICARE ==
[2022-10-30 13:17] LABS: HEMOGLOBIN 13.2 g/dl (12.0-15.5); MEAN CORPUSCULAR HEMOGLOBIN 30.3 pg (27.0-33.0); MEAN CORPUSCULAR HGB CONC 31.4 g/dl (32.0-36.5); MEAN CORPUSCULAR VOLUME 96.3 fl (80.0-96.0); PLATELET COUNT, AUTOMATED 283 10^3/uL (150-450); RED BLOOD COUNT 4.36 10^6/uL (4.00-5.40); WHITE BLOOD COUNT 8.9 10^3/uL (4.0-10.0)
[2022-10-30 13:35] LABS: HEMOGLOBIN A1c 5.3 % (4.0-6.0)
[2022-10-30 13:50] LABS: ALBUMIN 3.1 G/DL (3.2-5.2); BILIRUBIN,TOTAL 0.4 MG/DL (0.3-1.2); CALCIUM LEVEL 8.9 MG/DL (8.3-10.6); CREATININE FOR GFR 1.21 MG/DL (0.55-1.30); GLOMERULAR FILTRATION RATE 44.8 (>32); POTASSIUM SERUM 5.3 MMOL/L (3.5-5.1); TOTAL PROTEIN 5.9 G/DL (5.7-8.2)
[2022-10-30 13:52] LABS: THYROID STIMULATING HORMONE 2.996 uIU/ML (0.55-4.78)
== END ==
LOC: M PLALAB 10:50
PROVIDERS: ATTEND Nurse Practitioner Adult Health
DX: I10 Essential (primary) hypertension (principal)

== ENCOUNTER → 2023-02-02 | Outpatient (CLI) | payer MEDICARE | LOC: M CARPUL 14:16 | PROVIDERS: ATTEND Internal Medicine Cardiovascular Disease | DX: I50.20 Unspecified systolic (congestive) heart failure (principal) ==

== ENCOUNTER 2023-04-05 06:55 | Emergency (ER) | payer MEDICARE ==
[~2023-04-05] VITALS: Ht 157.5 cm; Wt 73.8 kg
[~2023-04-05 06:55] MED LIST changes: -CEFD300C41 PO; +CEFD300C42 PO
[2023-04-05] MEDS ORDERED: CARV12.5 (07:12)
[2023-04-05] MEDS ORDERED: NS 500 ML IV ONE ×2 (08:00→08:35)
[2023-04-05 08:03] LABS: BASO % 0.2 % (0.0-1.0); EOS # 0.5 10^3/uL (0.0-0.5); EOS % 3.1 % (0.0-3.0); HEMOGLOBIN 14.4 g/dl (12.0-15.5); LYMPH # 1.3 10^3/uL (1.5-5.0); LYMPH % 7.6 % (24.0-44.0); MEAN CORPUSCULAR HEMOGLOBIN 31.7 pg (27.0-33.0); MEAN CORPUSCULAR HGB CONC 32.7 g/dl (32.0-36.5); MEAN CORPUSCULAR VOLUME 96.9 fl (80.0-96.0); MONO # 1.5 10^3/uL (0.0-0.8); MONO % 9.2 % (2.0-8.0); NEUTROPHILS % 79.6 % (36.0-66.0); PLATELET COUNT, AUTOMATED 263 10^3/uL (150-450); RED BLOOD COUNT 4.54 10^6/uL (4.00-5.40); WHITE BLOOD COUNT 16.4 10^3/uL (4.0-10.0)
[2023-04-05 08:14] LABS: INR 1.05; PROTHROMBIN TIME 13.4 SECONDS (12.5-14.5)
[2023-04-05 08:15] LABS: PARTIAL THROMBOPLASTIN TIME 27.3 SECONDS (24.8-34.2)
[2023-04-05 08:27] LABS: ALBUMIN 3.2 G/DL (3.2-5.2); BILIRUBIN,DIRECT 0.2 MG/DL (<0.4); BILIRUBIN,TOTAL 0.5 MG/DL (0.3-1.2); MAGNESIUM LEVEL 1.9 MG/DL (1.8-2.4); TOTAL PROTEIN 6.6 G/DL (5.7-8.2)
[2023-04-05] MEDS ORDERED: ONDA4TAB6 PO (09:34)
[2023-04-05 11:20] VITALS: BP 105/64; TEMP 97.3; O2SAT 95
== END 2023-04-05 11:27 | disposition home or self-care (01) ==
LOC: M ED 06:55
DX: R11.10 Vomiting, unspecified (principal); R19.7 Diarrhea, unspecified; E78.5 Hyperlipidemia, unspecified; I10 Essential (primary) hypertension; F41.9 Anxiety disorder, unspecified; F32.A Depression, unspecified; E03.9 Hypothyroidism, unspecified; Z86.79 Personal history of other diseases of the circulatory system; Z88.2 Allergy status to sulfonamides; Z88.8 Allergy status to other drugs, medicaments and biological substances; Z91.030 Bee allergy status; Z79.83 Long term (current) use of bisphosphonates; Z79.810 Long term (current) use of selective estrogen receptor modulators (SERMs); Z79.899 Other long term (current) drug therapy

== ENCOUNTER → 2023-04-13 | Outpatient (CLI) | payer MEDICARE ==
[~2023-04-13] MED LIST changes: +CARV12.5; +ONDA4TAB6 PO
== END ==
LOC: M PLALAB 14:59
PROVIDERS: ATTEND Nurse Practitioner Adult Health
DX: M79.672 Pain in left foot (principal); M77.32 Calcaneal spur, left foot

== ENCOUNTER → 2023-09-01 | Outpatient (CLI) | payer MEDICARE ==
[~2023-09-01] MED LIST changes: +CEFD1CAP9 PO; -CEFD300C42 PO
[2023-09-01 10:40] LABS: HEMATOCRIT 41.9 % (36.0-47.0); HEMOGLOBIN 13.4 g/dl (12.0-15.5); PLATELET COUNT, AUTOMATED 258 10^3/uL (150-450); RED BLOOD COUNT 4.32 10^6/uL (4.00-5.40); WHITE BLOOD COUNT 8.2 10^3/uL (4.0-10.0)
[2023-09-01 11:01] LABS: HEMOGLOBIN A1c 5.4 % (4.0-6.0)
[2023-09-01 11:12] LABS: ALBUMIN 3.1 G/DL (3.2-5.2); BILIRUBIN,TOTAL 0.5 MG/DL (0.3-1.2); CALCIUM LEVEL 8.5 MG/DL (8.3-10.6); CHOLESTEROL RISK RATIO 2.99 (<5); CREATININE FOR GFR 1.18 MG/DL (0.55-1.30); HDL CHOLESTEROL 54.8 MG/DL (>40); LDL CHOLESTEROL 83.4 MG/DL (<100); MAGNESIUM LEVEL 1.8 MG/DL (1.8-2.4); NON-HDL-C 109.2 MG/DL; POTASSIUM SERUM 4.8 MMOL/L (3.5-5.1); TOTAL PROTEIN 5.8 G/DL (5.7-8.2)
[2023-09-01 11:16] LABS: THYROID STIMULATING HORMONE 3.493 uIU/ML (0.55-4.78); TOTAL 25(OH) VITAMIN D 55.6 NG/ML (20.0-100.0)
== END ==
LOC: M PLALAB 08:21
PROVIDERS: ATTEND Nurse Practitioner Adult Health
DX: E03.9 Hypothyroidism, unspecified (principal); I10 Essential (primary) hypertension; E55.9 Vitamin D deficiency, unspecified; E78.2 Mixed hyperlipidemia; Z79.899 Other long term (current) drug therapy

== ENCOUNTER → 2024-08-03 | Outpatient (CLI) | payer MEDICARE ==
[~2024-08-03] MED LIST changes: +ONDA-282 PO; -ONDA4TAB6 PO
[2024-08-03 15:59] LABS: ALBUMIN 3.4 G/DL (3.2-5.2); BILIRUBIN,TOTAL 0.5 MG/DL (0.3-1.2); CALCIUM LEVEL 9.7 MG/DL (8.3-10.6); CREATININE FOR GFR 1.25 MG/DL (0.55-1.30); POTASSIUM SERUM 5.4 MMOL/L (3.5-5.1); TOTAL PROTEIN 6.6 G/DL (5.7-8.2)
[2024-08-03 16:11] LABS: HEMOGLOBIN 14.5 g/dl (12.0-15.5); MEAN CORPUSCULAR HEMOGLOBIN 30.3 pg (27.0-33.0); MEAN CORPUSCULAR HGB CONC 31.5 g/dl (32.0-36.5); PLATELET COUNT, AUTOMATED 281 10^3/uL (150-450); RED BLOOD COUNT 4.79 10^6/uL (4.00-5.40); WHITE BLOOD COUNT 10.1 10^3/uL (4.0-10.0)
== END ==
LOC: M PLALAB 12:41
PROVIDERS: ATTEND Internal Medicine Cardiovascular Disease
DX: I50.20 Unspecified systolic (congestive) heart failure (principal)